=== PATIENT | female | born 1955 | race Caucasian/White ===

== ENCOUNTER 2017-06-29 10:35 | Emergency (ER) | payer BC ==
--- OUTSIDE RECORDS SUMMARY | 2017-06-29 10:37 | XMS REPORT | Clinical Summary ---
:1955 Author Organization [facility] Address [address] [place] [id number] Care Team Providers Name Role Phone Suleman Casiano MD Primary Care Provider Unavailable Allergies Active Allergy Reactions Severity Noted Date Comments Penicillins 12/31/2016 Sulfa (Sulfonamide Antibiotics) 12/31/2016 Current Medications Prescription Sig. Disp. Refills Start Date End Date Status SUBOXONE 8-[address] 1 strip 0 12/30/2016 Active UNDER THE TONGUE THREE TIMES DAILY carisoprodol (SOMA) 350 MG Take 350 mg by Active tablet mouth 4 (four) times a day as needed for muscle spasms. prochlorperazine Take 10 mg by Active (COMPAZINE) 10 MG tablet mouth every 6 (six) hours as needed for nausea or vomiting. Active Problems Problem Noted Date Strain of back 01/03/2017 Compression fracture of L1 lumbar vertebra 12/31/2016 Encounters Date Type Specialty Care Team Description 01/26/2017 Procedure Pass Radiology 01/26/2017 Transcribe Orders Radiology Gomez Watts History of pelvic W, fracture (Primary Dx) 01/03/2017 Office Visit Orthopedic Surgery Eliazar Myers Back strainJhon III, MD subsequent encounter (Primary Dx) 12/31/2016 Hospital Encounter Radiology Eliazar Myers III, MD 12/31/2016 Office Visit Orthopedic Eliazar Choi Low back pain with bilateral sciatica, unspecified back pain laterality, unspecified chronicity (Primary Dx); Jhon HUITRON MD Compression fracture of L1 lumbar vertebra, closed, initial encounter 12/31/2016 Procedure Pass Radiology 12/31/2016 Ancillary Orders Eliazar Mckenna III, MD after 06/28/2016 Family History Medical History Relation Name Comments Cancer Mother Norma Nevill Diabetes Mother Norma Nevill Relation Name Status Comments Mother Norma Ortiz Social History Tobacco Use Types Packs/Day Years Used Date Current Every Day Smoker Cigarettes 1 45 Started: 04/04/1976 Comments: Still smoke Alcohol Use Drinks/Week oz/Week Comments No Sex Assigned at Date Recorded Not on file Last Filed Vital Signs Vital Sign Reading Time Taken Blood Pressure 130/82 01/03/2017 3:14 PM CDT Pulse - - Temperature - - Respiratory Rate - - Oxygen Saturation - - Inhaled Oxygen Concentration - - Weight 70.8 kg (156 lb) 02/07/2017 1:52 PM [employer] Height 167.6 cm (5' 6") 02/07/2017 1:52 PM [employer] Body Mass Index 25.18 02/07/2017 1:52 PM [employer] Plan of Treatment Health Maintenance Due Date Last Done Comments PAP SMEAR 1978 COLONOSCOPY 12/03/2007 MAMMOGRAM 12/03/2007 INFLUENZA VACCINE 11/02/2016 Results MRI Pelvis W Wo Contrast (02/07/2017 2:40 PM) Specimen Performing Laboratory [facility] [address] [place] [address] Narrative EXAMINATION:MRI PELVIS W WO CONTRAST CLINICAL HISTORY:Z87.81 Personal history of (healed) traumatic fracture, PELVIC FRACTURE TECHNIQUE: Multiplanar multisequence MR images of the pelvis were obtained pre - and post intravenous administration of Gadolinium. COMPARISON:None. FINDINGS: 1.Densely sclerotic 2.4 x 1.7 cm nonenhancing area involving the right iliac bone adjacent to the sacroiliac joint. The findings are most likely related to osteoarthritis. To a lesser extent there is a sclerotic area adjacent to the left SI joint measuring 9 x 8 mm. 2.There is no abnormal increased T2 signal intensity involving the sacrum or visualized portions of the iliac bones to suggest an acute fracture. There is significant artifact secondary to hardware from bilateral hip prosthesis. 3.Large and small bowel loops in the pelvis are of normal caliber. The bladder is relatively empty. Uterus is surgically absent. 4.There is no evidence to suggest a pelvic mass. IMPRESSION: 1.No evidence to suggest an acute pelvic fracture. [id number] Procedure Note Interface, Radiology Results Incoming - 02/07/2017 4:23 PM [employer] EXAMINATION: MRI PELVIS W WO CONTRAST CLINICAL HISTORY: Z87.81 Personal history of (healed) traumatic fracture, PELVIC FRACTURE TECHNIQUE: Multiplanar multisequence MR images of the pelvis were obtained pre - and post intravenous administration of Gadolinium. COMPARISON: None. FINDINGS: 1. Densely sclerotic 2.4 x 1.7 cm nonenhancing area involving the right iliac bone adjacent to the sacroiliac joint. The findings are most likely related to osteoarthritis. To a lesser extent there is a sclerotic area adjacent to the left SI joint measuring 9 x 8 mm. 2. There is no abnormal increased T2 signal intensity involving the sacrum or visualized portions of the iliac bones to suggest an acute fracture. There is significant artifact secondary to hardware from bilateral hip prosthesis. 3. Large and small bowel loops in the pelvis are of normal caliber. The bladder is relatively empty. Uterus is surgically absent. 4. There is no evidence to suggest a pelvic mass. IMPRESSION: 1. No evidence to suggest an acute pelvic fracture. [id number] Estimated GFR (02/07/2017 1:44 PM) Component Value Ref Range GFR Non Af Amer >90 mL/min/1.73 m2 GFR Af Amer >90 mL/min/1.73 m2 Comment: Chronic kidney disease: <60 mL/min/1.73m2 Kidney failure: <15 mL/min/1.73m2 The estimated GFR is calculated from the IDMS-traceable Modification of Diet in Renal Disease Equation. The accuracy of the calculation is poor when the creatinine is normal. Calculated values >90 mL/min/1.73m2 are not reported. This equation has not been validated in children (<18 years), women, the elderly (>70 years), or ethnic groups other than Caucasians and Americans. Specimen Performing Laboratory Blood [facility] DEPARTMENT OF PATHOLOGY AND GENOMIC MEDICINE [address] [place], [place] [id number] POC creatinine (02/07/2017 1:44 PM) Component Value Ref Range POC creatinine 0.3 (L)Comment: Testing performed on the ISTAT 0.5 - 0.9 mg/dl instrument by RN [id number]. Specimen Performing Laboratory Blood [facility] DEPARTMENT OF PATHOLOGY AND GENOMIC MEDICINE [address] [place] [id number] MRI Lumbar Spine Wo Contrast (12/31/2016 4:51 PM) Specimen Performing Laboratory [facility] [address] [place] [id number] Narrative EXAMINATION:MRI LUMBAR SPINE WO CONTRAST CLINICAL HISTORY:S32.010A Wedge compression fracture of first lumbar vertebrainitial encounter for closed fracture, low back pain COMPARISON:May 14, 2012 FINDINGS: Lowermost functional disc space is assumed to be L5-S1. There is chronic severe compression fracture of L1 vertebral body with some retrolisthesis. There is a subacute superior endplate Schmorl's node at T12. No suspicious focal bone marrow lesions. Visualized spinal cord is normal in appearance. L1-2: Mild retrolisthesis of L1. No significant canal or foraminal narrowing. L2-3: No canal or foraminal narrowing. L3-4: No canal or foraminal narrowing. Mild bilateral facet arthropathy. L4-5: Bilateral facet arthropathy. No canal or foraminal narrowing. L5-S1: No canal or foraminal narrowing. Bilateral facet arthropathy. IMPRESSION: Chronic L1 vertebral body compression fracture. Subacute superior endplate Schmorl's node at T12. No significant canal or foraminal narrowing in the lumbar spine. [facility]-[id number] Procedure Note Interface, Radiology Results Incoming - 12/31/2016 4:58 PM CDT EXAMINATION: MRI LUMBAR SPINE WO CONTRAST CLINICAL HISTORY: S32.010A Wedge compression fracture of first lumbar vertebra initial encounter for closed fracture, low back pain COMPARISON: May 14, 2012 FINDINGS: Lowermost functional disc space is assumed to be L5-S1. There is chronic severe compression fracture of L1 vertebral body with some retrolisthesis. There is a subacute superior endplate Schmorl's node at T12. No suspicious focal bone marrow lesions. Visualized spinal cord is normal in appearance. L1-2: Mild retrolisthesis of L1. No significant canal or foraminal narrowing. L2-3: No canal or foraminal narrowing. L3-4: No canal or foraminal narrowing. Mild bilateral facet arthropathy. L4-5: Bilateral facet arthropathy. No canal or foraminal narrowing. L5-S1: No canal or foraminal narrowing. Bilateral facet arthropathy. IMPRESSION: Chronic L1 vertebral body compression fracture. Subacute superior endplate Schmorl's node at T12. No significant canal or foraminal narrowing in the lumbar spine. [facility]-[id number] XR Lumbar Spine Complete 4+ Vw (12/31/2016 2:06 PM) Specimen Performing Laboratory [facility] [address] [place] [address] Narrative 5. View lumbar spine with flexion-extension: Patient is a total hip replacement. General appearance is one of osteopenia. There is advanced degenerative changes of the entire lumbar spine including facet joints, mostly the 2 lower segments. There is a compression fracture with vertebral plana of L1. CT Spine External Study (12/17/2016 1:44 PM) Specimen Performing Laboratory [facility] [address] [place] [address] Narrative This exam was not acquired at a Religious facility and has not been interpreted by a Religious Provider.The exam was imported into our imaging system for comparisons purposes. after 06/28/2016 Insurance Payer Benefit Plan / Group Subscriber ID Type Phone Address BCBS BCBS CHOICE PPO/FEDERAL EMPL PPO xxxxxxxxxxxx PPO Home: [id number] [phone] [address]
[2017-06-29] MEDS ORDERED: KETOROLAC 30 MG/ML INJ ONE (11:18)
--- NOTE | 2017-06-29 11:48 | RAD REPORT ---
EXAM DESCRIPTION: RAD - Wrist Left 3 View - 06/29/2017 11:39 am CLINICAL HISTORY: Left wrist pain status post injury FINDINGS: No acute fracture or dislocation is seen. The bones are osteoporotic. Sideplate and screws affix old radial and ulnar fractures If the patient continues to have symptoms to suggest an occult fracture then a followup plain film se abhilash in 7 days would be recommended
--- NOTE | 2017-06-29 11:49 | RAD REPORT ---
EXAM DESCRIPTION: RAD - Hip Left 2 View - 06/29/2017 11:39 am CLINICAL HISTORY: Fall, hip pain COMPARISON: 04/23/2016 FINDINGS: Left total hip arthroplasty is noted. No evidence of hardware loosening or infection. An a cute fracture is not seen. Ill-defined sclerosis involving the right SI joint is a chronic finding. IMPRESSION: No acute abnormality discerned.
--- NOTE | 2017-06-29 12:49 | ER ---
Nurse's Notes [facility] Name: Dorita Chirinos Age: 61 yrs Sex: Female : 1955 Arrival Date: 06/29/2017 Time: 10:40 Bed 24 Private MD: Diagnosis: Contusion of left wrist;Contusion of left hip Presentation: 06/29 10:41 Presenting complaint: EMS states: walking into [facility] when patient set her purse down and ss forgot to pick it back up, then tripped. Pt c/o L hip and wrist pain. Pt's speech is slurred, appears drowsy and is wearing sunglasses. Pupils equal, pinpoint. Denies taking any medications today. Denies hitting head. Transition of care: patient was not received from another setting of care. Onset of symptoms was June 29, 2017. Care prior to arrival: None. 10:41 Method Of Arrival: EMS: [facility] ss 10:41 Acuity: AGAPITO 3 ss Historical: - Allergies: 10:44 Morphine; ss 10:44 PENICILLINS; ss 10:44 Sulfa (Sulfonamide Antibiotics); ss - Home Meds: 10:44 [place] 10-325 mg Oral tab 1 tab three times a day [Active]; ss - PMHx: 10:44 Anxiety; GERD; Vascular Necrosis; ovarian cancer; Chronic pain; ss - PSHx: 10:44 bilateral hip replacements; R wrist repair; ss - Immunization history:: Adult Immunizations up to date. - Social history:: Smoking status: Patient uses tobacco products, smokes one-half pack cigarettes per day. Screenin:50 Abuse screen: Denies threats or abuse. Denies injuries from another. Nutritional ss screening: No deficits noted. Tuberculosis screening: Never had TB. Fall Risk Fall in past 12 months (25 points). No secondary diagnosis (0 pts). IV access (20 points). Ambulatory Aid- None/Bed Rest/Nurse Assist (0 pts). Gait- Normal/Bed Rest/Wheelchair (0 pts) Mental Status- Oriented to own ability (0 pts). Assessment: 10:41 General: Appears uncomfortable, Behavior is cooperative, drowsy, Denies fever, feeling ss ill, fatigue, chills. Pain: Complains of pain in L hip, L wrist Pain currently is 10 out of 10 on a pain scale. Quality of pain is described as tender, Pain began 30 min ago. Is continuous, Aggravated by increased activity, repositioning. Neuro: Level of Consciousness is awake, obeys commands, drowsy. Moves all extremities. Full function Speech is slurred, Facial symmetry appears normal, Pupils are PERRLA, Denies blurred vision numbness headache. Cardiovascular: Capillary refill < 3 seconds is brisk in bilateral fingers. GI: Patient currently denies diarrhea, nausea, vomiting. :. EENT: Nares are clear Oral mucosa is moist. Throat is clear Denies blurred vision. Derm: Skin is intact, is healthy with good turgor, Skin is dry, Skin is pink, warm \T\ dry. normal. Musculoskeletal: Circulation, motion, and sensation intact. Capillary refill < 3 seconds, is brisk, in bilateral fingers. Range of motion: intact in all extremities, Swelling absent. 10:48 Reassessment: Pt is requesting pain medication, warm blanket given for comfort. HANNA Hart at bedside. 12:52 Reassessment: Patient appears in no apparent distress at this time. Patient and/or ss family updated on plan of care and expected duration. Pain level reassessed. Patient is alert, oriented x 3, equal unlabored respirations, skin warm/dry/pink. Patient states feeling better. Patient states symptoms have improved. Neuro: Level of Consciousness is awake, alert, Speech is normal. Respiratory: Respiratory effort is even, unlabored. Vital Signs: 10:44 BP 99 / 62; Pulse 96; Resp 15; Temp 97.6(O); Pulse Ox 100% on R/A; Weight 69.4 kg; Height 5 ft. 3 in. (160.02 cm); Pain 10/10; 12:28 BP 110 / 68 Supine; Pulse 80; Resp 16; Pulse Ox 98% on R/A; dh3 12:30 BP 104 / 70 Sitting; Pulse 85; Resp 17; Pulse Ox 100% ; dh3 12:32 BP 106 / 73 Standing; Pulse 91; Resp 19; Pulse Ox 100% ; dh3 10:44 Body Mass Index 27.10 (69.40 kg, 160.02 cm) ED Course: 10:40 Patient arrived in ED. 10:43 Triage completed. 10:44 [place] PA is PHCP. jr8 10:44 Elliott Galan MD is Attending Physician. jr8 10:44 Arm band placed on right wrist. ss 10:50 Patient has correct armband on for positive identification. Bed in low position. Call ss light in reach. 10:55 Ani Mann, RN is Primary Nurse. ss 11:38 X-ray completed. Portable x-ray completed in exam room. Patient tolerated procedure jb2 well. 11:40 XRAY Hip LEFT 2 view In Process Unspecified. EDMS 11:40 XRAY Wrist LEFT 3 view In Process Unspecified. EDMS 12:53 No provider procedures requiring assistance completed. Patient did not have IV access ss during this emergency room visit. Administered Medications: 11:40 Drug: TORadol 60 mg Route: IM; Site: left gluteus; ss 12:54 Follow up: Response: No adverse reaction; Pain is decreased ss Outcome: 12:48 Discharge ordered by . jr8 12:53 Discharged to home ambulatory. ss 12:53 Condition: good 12:53 Discharge instructions given to patient, Instructed on discharge instructions, follow up and referral plans. Demonstrated understanding of instructions, follow-up care. 12:55 Patient left the ED. ss Signatures: Dispatcher [employer] EDOH Juan Ramon Curran jb2 Ani Mann, RASHMI RN [place] PA PA jr8 Yanna Hobson 3
--- NOTE | 2017-06-29 12:49 | EDPHYS ---
Physician Documentation [facility] Name: Dorita Chirinos Age: 61 yrs Sex: Female : 1955 Arrival Date: 06/29/2017 Time: 10:40 Bed 24 Private MD: ED Physician Elliott Galan HPI: 06/29 11:10 This 61 yrs old Female presents to ER via EMS with complaints of Hip Pain, jr8 Wrist Pain. 11:10 The patient or guardian reports pain. that occurred outdoors, sustained from a fall, jr8 There is no obvious deformity. The complaints affect the left hip. Onset: The symptoms/episode began/occurred acutely, today. Modifying factors: The symptoms are alleviated by nothing, the symptoms are aggravated by any movement. Associated signs and symptoms: Loss of consciousness: the patient experienced no loss of consciousness. Severity of symptoms: At their worst the symptoms were moderate, in the emergency department the symptoms are unchanged. The patient has not experienced similar symptoms in the past. The patient has not recently seen a physician. Patient stated that she was getting out of her vehicle. Tripped and landed on left wrist and hip. Pain to hip and wrist since incident . Historical: - Allergies: 10:44 Morphine; ss 10:44 PENICILLINS; ss 10:44 Sulfa (Sulfonamide Antibiotics); ss - Home Meds: 10:44 [place] 10-325 mg Oral tab 1 tab three times a day [Active]; ss - PMHx: 10:44 Anxiety; GERD; Vascular Necrosis; ovarian cancer; Chronic pain; ss - PSHx: 10:44 bilateral hip replacements; R wrist repair; ss - Immunization history:: Adult Immunizations up to date. - Social history:: Smoking status: Patient uses tobacco products, smokes one-half pack cigarettes per day. ROS: 11:10 Eyes: Negative for injury, pain, redness, and discharge, ENT: Negative for injury, jr8 pain, and discharge, Neck: Negative for injury, pain, and swelling, Cardiovascular: Negative for chest pain, palpitations, and edema, Respiratory: Negative for shortness of breath, cough, wheezing, and pleuritic chest pain, Abdomen/GI: Negative for abdominal pain, nausea, vomiting, diarrhea, and constipation, Back: Negative for injury and pain, Skin: Negative for injury, rash, and discoloration, Neuro: Negative for headache, weakness, numbness, tingling, and seizure. 11:10 MS/extremity: Positive for pain, tenderness, of the left hip. Left wrist . Exam: 11:10 Head/Face: Normocephalic, atraumatic. Eyes: Pupils equal round and reactive to light, jr8 extra-ocular motions intact. Lids and lashes normal. Conjunctiva and sclera are non-icteric and not injected. Cornea within normal limits. Periorbital areas with no swelling, redness, or edema. ENT: Nares patent. No nasal discharge, no septal abnormalities noted. Tympanic membranes are normal and external auditory canals are clear. Oropharynx with no redness, swelling, or masses, exudates, or evidence of obstruction, uvula midline. Mucous membranes moist. Neck: Trachea midline, no thyromegaly or masses palpated, and no cervical lymphadenopathy. Supple, full range of motion without nuchal rigidity, or vertebral point tenderness. No Meningismus. Cardiovascular: Regular rate and rhythm with a normal S1 and S2. No gallops, murmurs, or rubs. Normal PMI, no JVD. No pulse deficits. Respiratory: Lungs have equal breath sounds bilaterally, clear to auscultation and percussion. No rales, rhonchi or wheezes noted. No increased work of breathing, no retractions or nasal flaring. Abdomen/GI: Soft, non-tender, with normal bowel sounds. No distension or tympany. No guarding or rebound. No evidence of tenderness throughout. Back: No spinal tenderness. No costovertebral tenderness. Full range of motion. Skin: Warm, dry with normal turgor. Normal color with no rashes, no lesions, and no evidence of cellulitis. Neuro: Awake and alert, GCS 15, oriented to person, place, time, and situation. Cranial nerves II-XII grossly intact. Motor strength 5/5 in all extremities. Sensory grossly intact. Cerebellar exam normal. Normal gait. 11:10 Musculoskeletal/extremity: Extremities: grossly normal except: noted in the left hip: pain, tenderness, noted in the left wrist: pain, tenderness, ROM: intact in all extremities, Circulation is intact in all extremities. Vital Signs: 10:44 BP 99 / 62; Pulse 96; Resp 15; Temp 97.6(O); Pulse Ox 100% on R/A; Weight 69.4 kg; ss Height 5 ft. 3 in. (160.02 cm); Pain 10/10; 12:28 BP 110 / 68 Supine; Pulse 80; Resp 16; Pulse Ox 98% on R/A; dh3 12:30 BP 104 / 70 Sitting; Pulse 85; Resp 17; Pulse Ox 100% ; dh3 12:32 BP 106 / 73 Standing; Pulse 91; Resp 19; Pulse Ox 100% ; dh3 10:44 Body Mass Index 27.10 (69.40 kg, 160.02 cm) MDM: 10:45 Patient medically screened. jr8 12:46 Data reviewed: vital signs, nurses notes, radiologic studies, plain films, and as a jr8 result, I will discharge patient. Data interpreted: Pulse oximetry: on room air is 100 %. Interpretation: normal. Counseling: I had a detailed discussion with the patient and/or guardian regarding: the historical points, exam findings, and any diagnostic results supporting the discharge/admit diagnosis, radiology results, the need for outpatient follow up, a family practitioner, to return to the emergency department if symptoms worsen or persist or if there are any questions or concerns that arise at home. 06/29 10:53 Order name: XRAY Hip LEFT 2 view; Complete Time: 11:50 jr8 06/29 10:53 Order name: XRAY Wrist LEFT 3 view; Complete Time: 11:50 jr8 06/29 11:50 Order name: Orthostatics; Complete Time: 12:36 jr8 Administered Medications: 11:40 Drug: TORadol 60 mg Route: IM; Site: left gluteus; ss 12:54 Follow up: Response: No adverse reaction; Pain is decreased ss Disposition: 15:10 Co-signature as Attending Physician, Elliott Galan MD I agree with the assessment and shi plan of care. Disposition: 06/29/17 12:48 Discharged to Home. Impression: Contusion of left wrist, Contusion of left hip. - Condition is Stable. - Discharge Instructions: Contusion, Wrist Pain, Hip Pain. - Medication Reconciliation Form, Thank You Letter, Antibiotic Education, Prescription Opioid Use form. - Follow up: Private Physician; When: 2 - 3 days; Reason: Recheck today's complaints, Continuance of care, Re-evaluation by your physician. - Problem is new. - Symptoms have improved. Signatures: Dispatcher [employer] Elliott Russell MD MD cha Smirch, Shelby, RN RN Angus Forman PA PA jr8
[2017-06-29 13:00] VITALS: TEMP 97.6
[2017-06-29 13:02] VITALS: O2SAT 100
[2017-06-29 13:03] VITALS: BP 106/73
== END 2017-06-29 12:55 | disposition home or self-care (01) ==
LOC: ER 10:35
DX: S70.02XA Contusion of left hip, initial encounter (principal); S60.212A Contusion of left wrist, initial encounter; W19.XXXA Unspecified fall, initial encounter; Y93.9 Activity, unspecified; Y92.89 Other specified places as the place of occurrence of the external cause; Z85.43 Personal history of malignant neoplasm of ovary; Z88.5 Allergy status to narcotic agent; Z88.0 Allergy status to penicillin; Z88.2 Allergy status to sulfonamides; F41.9 Anxiety disorder, unspecified; F17.210 Nicotine dependence, cigarettes, uncomplicated
CPT/HCPCS: 96372; 99284

== ENCOUNTER 2017-08-24 00:59 | Observation (INO) | payer BC ==
--- OUTSIDE RECORDS SUMMARY | 2017-08-24 01:02 | XMS REPORT | Clinical Summary ---
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 [id number] Procedure Note Interface, Radiology Results Incoming - 02/07/2017 4:23 PM BREAD WRAPPING MACHINE FEEDER EXAMINATION: MRI PELVIS W WO CONTRAST CLINICAL [...] evidence to suggest an acute pelvic fracture. [id number] Estimated GFR (02/07/2017 1:44 PM) Component Value [...] Caucasians and Americans. Specimen Performing Laboratory Blood [facility] DEPARTMENT OF PATHOLOGY AND GENOMIC MEDICINE [address] [place] [id number] POC creatinine (02/07/2017 1:44 PM) Component Value Ref Range POC creatinine 0.3 (L)Comment: Testing performed on the ISTAT 0.5 - 0.9 mg/dl instrument by RN [id number]. Specimen Performing Laboratory Blood [facility] DEPARTMENT OF PATHOLOGY AND GENOMIC MEDICINE [address] [place] [id number] MRI Lumbar Spine Wo Contrast (12/31/2016 4:51 PM) Specimen Performing Laboratory [facility] [address] [place] [address] Narrative EXAMINATION:MRI LUMBAR SPINE WO CONTRAST CLINICAL [...] or foraminal narrowing in the lumbar spine. [id number] Procedure Note Interface, Radiology Results 12/31/2016 4:58 PM CDT EXAMINATION: MRI LUMBAR [...] or foraminal narrowing in the lumbar spine. [id number] XR Lumbar Spine Complete 4+ Vw (12/31/2016 2:06 PM) Specimen Performing Laboratory [facility] [address] [place] [address] Narrative 5. View lumbar spine with flexion-extension: Patient is a total hip replacement. General appearance is one of osteopenia. There is advanced degenerative changes of the entire lumbar spine including facet joints, mostly the 2 lower segments. There is a compression fracture with vertebral plana of L1. CT Spine External Study (12/17/2016 1:44 PM) Specimen Performing Laboratory [facility] [address] [place] [address] Narrative This exam was not acquired at a [facility] facility and has not been interpreted by a [facility] Provider.The exam was imported into our imaging system for comparisons purposes. after 08/23/2016 Insurance Payer Benefit Plan / Group Subscriber ID Type Phone Address BCBS BCBS CHOICE PPO/FEDERAL EMPL PPO xxxxxxxxxxxx PPO Home: [id number] [phone] [address]
[2017-08-24 02:54] LABS: Absolute Lymphocytes (CBC) 1.5 K/uL (0.7-4.9); Absolute Monocytes 0.5 K/uL (0.1-1.3); Absolute Neutrophil 2.9 K/uL (1.8-8.0); Eosinophils % 0.4 % (0-4.4); Lymphocytes % 29.4 % (15.3-44.8); MCV 76.8 fL (80-100); MPV 7.4 fL (7.6-11.3); Monocytes % 10.8 % (3.3-12.3); RBC Red Blood Cell Count 2.15 M/uL (3.86-4.86)
[2017-08-24 02:59] LABS: Hematocrit 16.5 % (36.0-45.0)
[2017-08-24 03:03] LABS: Bicarbonate 30 mEq/L (21-31); Glucose Level 107 mg/dL (65-120); Sodium Level 132 mEq/L (135-145)
[2017-08-24 03:04] LABS: BUN Blood Urea Nitrogen 9 mg/dL (6-20)
[2017-08-24] MEDS ORDERED: FUROSEMIDE 20 MG/ 2ML VIAL ONE (03:16)
--- NOTE | 2017-08-24 03:42 | ER ---
Nurse's Notes [facility] Name: Dorita Chirinos Age: 61 yrs Sex: Female : 1955 Arrival Date: 08/24/2017 Time: 01:00 Bed 15 Private MD: Kalani Casiano H Diagnosis: Iron deficiency anemia, unspecified Presentation: 08/24 01:15 Presenting complaint: Patient states: Pt. c/o general weakness x 1 month. Hx of low rk2 iron... pt. had lab work completed to check iron level; however, blood clotted off and they were unable to obtain results. PCP advised to go to ED for evaluation. Pt. c/o bilateral leg pain/back pain; which is chronic pain. Transition of care: patient was not received from another setting of care. Onset of symptoms was August 24, 2017. Risk Assessment: Do you want to hurt yourself or someone else? Patient reports no desire to harm self or others. Initial Sepsis Screen: Does the patient meet any 2 criteria? HR > 90 bpm. No. Patient's initial sepsis screen is negative. Does the patient have a suspected source of infection? No. Patient's initial sepsis screen is negative. Care prior to arrival: None. 01:15 Method Of Arrival: Wheelchair rk2 01:15 Acuity: AGAPITO 3 rk2 Historical: - Allergies: 01:19 Sulfa (Sulfonamide Antibiotics); rk2 01:19 PENICILLINS; rk2 05:02 Morphine; bp - Home Meds: 05:02 anxiety medication unknown three times a day for . [Active]; [place] 10-325 mg Oral tab 1 bp tab three times a day [Active]; Soma Oral [Active]; - PMHx: 01:19 Anxiety; Chronic pain; GERD; ovarian cancer; Vascular Necrosis; L1 Issues; rk2 05:02 Hypertension; bp - Immunization history:: Pneumococcal vaccine is not up to date, Flu vaccine is not up to date. - Social history:: Smoking status: Patient uses tobacco products, smokes one-half pack cigarettes per day. - Ebola Screening: : Patient negative for fever greater than or equal to 101.5 degrees Fahrenheit, and additional compatible Ebola Virus Disease symptoms. Screenin:14 Abuse screen: Denies threats or abuse. Denies injuries from another. Nutritional bp screening: No deficits noted. Tuberculosis screening: No symptoms or risk factors identified. Fall Risk None identified. Assessment: 01:15 General: Appears in no apparent distress. comfortable, slender, Behavior is bp cooperative, appropriate for age, listless, RECD 61YO WF VIA W/C FOR GEN WKN INCREASING x1 MONTH, H/O MX CHRONIC PAIN D/O. PT LISTLESS AND PALE. Pain: Complains of pain in right leg and left leg. 02:00 Reassessment: PT SLEEPING/LETHARGIC, VS STABLE ON MONITOR. NO ACUTE FINDINGS AT THIS bp TIME. 02:37 Reassessment: PT SLEEPING UNLESS AROUSED BY TOUCH. SPEECH SLOW AND SLURRED, PUPILS bp CONSTRICTED. PHLEBOTOMY AT B/S FOR LAB DRAW. 03:00 Reassessment: CRITICAL LOW H/H FROM LAB, PROVIDER NOTIFIED. bp 03:15 Reassessment: PT CONSENT FOR BLOOD SIGNED/WITNESSED, TRANSFUSION PENDING. bp 04:15 Reassessment: 1ST UNIT INFUSING. VS STABLE ON MONITOR, ADMIT IN PROCESS. bp 05:31 Reassessment: REPORT TO ANYA CARABALLO, RM 410. PT TRANSPORTED WITH BLOOD INFUSING. bp Vital Signs: 01:19 BP 111 / 77; Pulse 105; Resp 17; Temp 99.8; Pulse Ox 96% on R/A; rk2 02:00 BP 114 / 72; Pulse 94; Resp 9; Pulse Ox 100% ; bp 02:30 BP 105 / 77; Pulse 89; Resp 17; Pulse Ox 100% ; bp 03:30 BP 108 / 68; Pulse 95; Resp 16; Pulse Ox 96% ; bp 04:30 BP 121 / 75; Pulse 92; Resp 14; Temp 97.9; Pulse Ox 100% ; bp 05:20 BP 122 / 77; Pulse 96; Resp 16; Temp 97.9; Pulse Ox 100% ; bp ED Course: 01:00 Patient arrived in ED. es 01:02 Kalani Casiano DO is Private Physician. es 01:05 Mu Monahan, RN is Primary Nurse. bp 01:14 Patient has correct armband on for positive identification. Bed in low position. Call bp light in reach. Side rails up X2. Adult w/ patient. 01:18 Triage completed. rk2 01:30 Arm band placed on. bp 02:23 Chanel Nowak FNP-C [facility]. snw 02:23 Elliott Galan MD is Attending Physician. snw 02:59 Notified Nurse Practitioner and/or Physician Audio Visual Design Engineer of a critical lab result(s), Hgb lp1 5.2, Hct 16.5. 03:26 Inserted saline lock: 20 gauge in right upper arm, using aseptic technique. Blood bp collected. 03:41 Alana Lopez MD is Hospitalizing Provider. snw 05:01 No provider procedures requiring assistance completed. Pierce cath inserted, using bp sterile technique, 16 Fr., by renal dialysis technician, balloon inflated, to gravity drainage. Patient admitted, IV remains in place. Administered Medications: 03:15 Drug: Lasix 20 mg Route: IVP; Site: right upper arm; bp 03:45 Follow up: Response: No adverse reaction bp Output: 05:50 Urine: 1000ml (Pierce); Total: 1000ml. bp Outcome: 03:41 Decision to Hospitalize by Provider. snw 05:32 Admitted to Tele accompanied by nurse, accompanied by tech, via stretcher, with chart, bp Report called to ANYA CARABALLO 05:32 Condition: stable 05:32 Instructed on the need for admit. 06:16 Patient left the ED. bp Signatures: Chanel Nowak FNP-C PROJECT DEVELOPER-Csnw Emilie Romero Laura, RN RN lp1 Mu Monahan RN RN bp Luisana Gleason RN RN rk2
--- NOTE | 2017-08-24 03:42 | EDPHYS ---
Physician Documentation [facility] Name: Dorita Chirinos Age: 61 yrs Sex: Female : 1955 Arrival Date: 08/24/2017 Time: 01:00 Bed 15 Private MD: Kalani Casiano H ED Physician Elliott Galan HPI: 08/24 03:51 This 61 yrs old Female presents to ER via Wheelchair with complaints of snw General Weakness. 03:51 Increasing weakness over past month. Fe infusion in . Onset: The symptoms/episode snw began/occurred gradually, and became persistent. Severity of symptoms: At their worst the symptoms were severe in the emergency department the symptoms are unchanged. The patient has experienced similar episodes in the past. The patient has been recently seen by a physician: the patient's primary care provider, Dr. Casiano with similar presenting complaints. pt heavily medicated for chronic pain. Historical: - Allergies: 01:19 Sulfa (Sulfonamide Antibiotics); rk2 01:19 PENICILLINS; rk2 05:02 Morphine; bp - Home Meds: 05:02 anxiety medication unknown three times a day for . [Active]; [place] 10-325 mg Oral tab 1 bp tab three times a day [Active]; Soma Oral [Active]; - PMHx: 01:19 Anxiety; Chronic pain; GERD; ovarian cancer; Vascular Necrosis; L1 Issues; rk2 05:02 Hypertension; bp - Immunization history:: Pneumococcal vaccine is not up to date, Flu vaccine is not up to date. - Social history:: Smoking status: Patient uses tobacco products, smokes one-half pack cigarettes per day. - Ebola Screening: : Patient negative for fever greater than or equal to 101.5 degrees Fahrenheit, and additional compatible Ebola Virus Disease symptoms. ROS: 03:46 Eyes: Negative for injury, pain, redness, and discharge, ENT: Negative for injury, snw pain, and discharge, Neck: Negative for injury, pain, and swelling, Respiratory: Negative for shortness of breath, cough, wheezing, and pleuritic chest pain, Back: Negative for injury and pain, : Negative for injury, bleeding, discharge, and swelling. 03:46 Cardiovascular: Negative for chest pain, palpitations, and edema, Abdomen/GI: Negative for abdominal pain, nausea, vomiting, diarrhea, and constipation, Skin: Negative for injury, rash, and discoloration. 03:46 Constitutional: Positive for increasing weakness over one month, hx of low iron. 03:46 Cardiovascular: Positive for 03:46 MS/extremity: Positive for pain, swelling, chronic pain in back, wrist, and legs. 03:46 Neuro: Positive for weakness. Exam: 03:41 Eyes: Pupils equal round and reactive to light, extra-ocular motions intact. Lids and snw lashes normal. Conjunctiva and sclera are non-icteric and not injected. Cornea within normal limits. Periorbital areas with no swelling, redness, or edema. ENT: Nares patent. No nasal discharge, no septal abnormalities noted. Tympanic membranes are normal and external auditory canals are clear. Oropharynx with no redness, swelling, or masses, exudates, or evidence of obstruction, uvula midline. Mucous membranes moist. Neck: Trachea midline, no thyromegaly or masses palpated, and no cervical lymphadenopathy. Supple, full range of motion without nuchal rigidity, or vertebral point tenderness. No Meningismus. Chest/axilla: Normal chest wall appearance and motion. Nontender with no deformity. No lesions are appreciated. 03:41 Respiratory: Lungs have equal breath sounds bilaterally, clear to auscultation and percussion. No rales, rhonchi or wheezes noted. No increased work of breathing, no retractions or nasal flaring. Abdomen/GI: Soft, non-tender, with normal bowel sounds. No distension or tympany. No guarding or rebound. No evidence of tenderness throughout. Back: No spinal tenderness. No costovertebral tenderness. Full range of motion. MS/ Extremity: Pulses equal, no cyanosis. Neurovascular intact. Full, normal range of motion. 03:41 Constitutional: The patient appears listless, unkempt. 03:41 Head/face: Noted is pallor. 03:41 Cardiovascular: Rate: tachycardic, Rhythm: regular, Pulses: no pulse deficits are appreciated, Heart sounds: murmur, Edema: 3+ edema to level of left midcalf, left ankle, left foot, left toes, right midcalf, right ankle, right foot and right toes, JVD: is not appreciated. 03:41 Skin: Appearance: Color: pale. 03:41 Neuro: Orientation: is normal, Mentation: is normal, Motor: generalized weakness, chronic pain. Vital Signs: 01:19 BP 111 / 77; Pulse 105; Resp 17; Temp 99.8; Pulse Ox 96% on R/A; rk2 02:00 BP 114 / 72; Pulse 94; Resp 9; Pulse Ox 100% ; bp 02:30 BP 105 / 77; Pulse 89; Resp 17; Pulse Ox 100% ; bp 03:30 BP 108 / 68; Pulse 95; Resp 16; Pulse Ox 96% ; bp 04:30 BP 121 / 75; Pulse 92; Resp 14; Temp 97.9; Pulse Ox 100% ; bp 05:20 BP 122 / 77; Pulse 96; Resp 16; Temp 97.9; Pulse Ox 100% ; bp MDM: 02:25 Patient medically screened. shi 03:45 Data reviewed: vital signs, nurses notes. Data interpreted: Pulse oximetry: on room air snw is 96 %. Interpretation: normal. Counseling: I had a detailed discussion with the patient and/or guardian regarding: the historical points, exam findings, and any diagnostic results supporting the discharge/admit diagnosis, lab results, the need for further work-up and treatment in the hospital. Physician consultation: Alana Lopez MD was called at 03:30, was contacted at 03:30, regarding admission. 08/24 02:24 Order name: CBC with Diff; Complete Time: 03:06 snw 08/24 02:24 Order name: Chem 7; Complete Time: 03:06 snw 08/24 02:24 Order name: TS [facility] 08/24 03:46 Order name: Packed RBC Leukored -1 [facility] 08/24 03:07 Order name: Consent for Blood Transfusion; Complete Time: 03:25 snw 08/24 03:07 Order name: IV Saline Lock; Complete Time: 03:25 snw 08/24 03:47 Order name: CONS Pharmacy Consult [facility] 08/24 03:47 Order name: Regular EDMS Administered Medications: 03:15 Drug: Lasix 20 mg Route: IVP; Site: right upper arm; bp 03:45 Follow up: Response: No adverse reaction bp Disposition: 08/24/17 03:41 Hospitalization ordered by Alana Lopez for Observation. Preliminary diagnosis is Iron deficiency anemia, unspecified. - Bed requested for Telemetry/MedSurg (observation). - Status is Observation. bp - Condition is Stable. - Problem is an acute exacerbation. - Symptoms have worsened. UTI on Admission? No Addendum: 08/25/2017 06:58 Co-signature as Attending Physician, Elliott Galan MD I agree with the assessment and c alvarez plan of care. Signatures: Dispatcher [employer] EDAmada Dunn, RN RN Elliott Graham MD MD cha Therrien, Shelly, GROUP ROOMS COORDINATOR-C GROUP ROOMS COORDINATOR-Csnw Mu Monahan RN RN Luisana Higuera RN RN rk2 Corrections: (The following items were deleted from the chart) 08/24 04:15 03:41 Hospitalization Ordered by Alana Lopez MD for Observation. Preliminary kl diagnosis is Iron deficiency anemia, unspecified. Bed requested for Telemetry/MedSurg (observation). Status is Observation. Condition is Stable. Problem is an acute exacerbation. Symptoms have worsened. UTI on Admission? No. snw 06:16 04:15 08/24/2017 03:41 Hospitalization Ordered by Alana Lopez MD for Observation. bp Preliminary diagnosis is Iron deficiency anemia, unspecified. Bed requested for Telemetry/MedSurg (observation). Status is Observation. Condition is Stable. Problem is an acute exacerbation. Symptoms have worsened. UTI on Admission? No. jenni
[2017-08-24] MEDS ORDERED: MORPHINE 2 MG/ML SYR IV PRN (03:44)
[2017-08-24] MEDS ORDERED: ONDANSETRON 4 MG/2 ML VIAL IV PRN (03:44)
[2017-08-24] MEDS ORDERED: ACETAMINOPHEN 500 MG TAB PO PRN (03:44)
[2017-08-24] MEDS ORDERED: NA CHLORIDE 0.9% 250 ML ONE ×3 (04:20→21:22)
--- NOTE | 2017-08-24 08:12 | P.HP ---
Certification for Inpatient Patient admitted to: Observation With expected LOS: <2 Midnights Patient will require the following post-hospital care: None Practitioner: I am a practitioner with admitting privileges, knowledge of patient current condition, hospital course, and medical plan of care. Services: Services provided to patient in accordance with Admission requirements found in Title 42 Section 412.3 of the Code of Federal Regulations Patient History Date of Service: 08/24/17 Reason for admission: Iron deficiency anemia History of Present Illness: Patient is a 61-year-old female who came into the hospital with generalized weakness and shortness of breath. She states she has been fatigued. She has had a lot of stress socially. Her mother and father in law over the last year. Her has not been able to help her because he recently had knee surgery. She has been feeling weak and short of breath for quite a while. She finally went to go see her 's PCP who ordered lab testing. Her lab tests revealed she had severe anemia. She was told to go into the emergency room. Her hemoglobin in the emergency room was 5.2. She will be admitted to the hospital for 2 units of packed red blood cells. She has a history of iron deficiency anemia. She has been told in the past that she has a problem with absorption of iron, and that iron supplementation will not help. She has been advised to get intravenous iron treatments. Patient will be admitted to the hospital for blood transfusion and hopefully she will be able to be discharged later today. Patient did mention to me after we were finished talking that she has had some problems with voiding. She is not able to void. She states she has to sit in the bathroom for 45 min before she can get a little urine output. This has been going on for quite a while. We will get Urology to see her while in the hospital, but more than likely she will need to continue to see urology for outpatient follow-up to get this further addressed. Allergies Penicillins Allergy (Mild, Verified 01/06/12 18:38) Itching Sulfa (Sulfonamide Antibiotics) [Sulfa(Sulfonamide Antibiotics)] Allergy (Mild, Verified 01/06/12 18:38) Itching/Hives/Rash Home Medications: Promethazine HCl [Phenergan] 25 mg PO TIDP PRN 02/09/12 Buprenorphine HCl/Naloxone HCl [Suboxone 8 mg-2 mg Sl Film] 1 film SL TID Prochlorperazine Maleate [Compazine] 10 mg PO TID 07/09/16 Levofloxacin [Levaquin*] 500 mg PO DAILY #7 tab 07/11/16 Metronidazole [Flagyl*] 500 mg PO Q8HR #20 tablet 07/11/16 - Past Medical/Surgical History Diabetic: No -: anxiety -: uterine cancer -: avascular necrosis -: iron deficiency anemia -: gastroparesis -: chronic pain syndrome -: bilateral hip replacement -: -: bilateral wrist sx -: pelvic fx -: finger sx - Family History Father Family History: Reviewed- Non-Contributory - Social History Smoking Status: Former smoker Alcohol use: No CD- Drugs: No Caffeine use: Yes Review of Systems 10-point ROS is otherwise unremarkable Physical Examination - Vital Signs Temperature: 97.9 F Blood Pressure: 122/77 Pulse: 96 Respirations: 16 Pulse Ox (%): 100 - Physical Exam General: Alert, In no apparent distress, Oriented x3 HEENT: Atraumatic, PERRLA, Mucous membr. moist/pink, Other ( conjunctivae is pale), EOMI, Sclerae nonicteric Neck: Supple, 2+ carotid pulse no bruit, No LAD, Without JVD or thyroid abnormality Respiratory: Clear to auscultation bilaterally, Normal air movement Cardiovascular: Regular rate/rhythm, Normal S1 S2, No murmurs Gastrointestinal: Normal bowel sounds, Soft and benign, Non-distended, No tenderness Musculoskeletal: No clubbing, No swelling, No tenderness Integumentary: No rashes Neurological: Normal gait, Normal speech, Normal strength at 5/5 x4 extr, Normal tone, Sensation intact, Cranial nerves 3-12 intact, Normal affect Lymphatics: No axilla or inguinal lymphadenopathy - Studies Laboratory Data (last 24 hrs) 08/24/17 02:42: Sodium 132 L, Potassium 4.0, BUN 9, Creatinine 0.46, Glucose 107 08/24/17 02:42: WBC 4.9, Hgb 5.2 L*, Hct 16.5 L*, Plt Count 316 Assessment & Plan - Problems (Diagnosis) (1) History of avascular necrosis of capital femoral epiphysis Current Visit: Yes Status: Acute (2) Chronic pain syndrome Current Visit: Yes Status: Acute (3) History of uterine cancer Current Visit: Yes Status: Acute (4) Anemia, iron deficiency Onset Date: 08/24/17 Current Visit: Yes Status: Acute - Plan plan: 1. Transfuse 2 units of packed red blood cells 2. My plan is to recheck a H&H after 2 units are transfused 3. Urology consultation 4. Anti emetics 5. Outpatient GI follow-up for gastroparesis 6. Outpatient hematology follow-up for iron transfusions 7. Gentle hydration 8. GI and DVT prophylaxis Discharge Plan: Home Plan to discharge in: 24 Hours - Advance Directives Does patient have a Living Will: No Does patient have a Durable POA for Healthcare: No - Code Status/Comfort Care Code Status Assessed: Yes Code Status: Full Code Time Spent Managing PTS Care (In Minutes): 55
[2017-08-24] MEDS: FUROSEMIDE 20 MG/ 2ML VIAL IV SCH ×2 (08:51→15:01)
[2017-08-24] MEDS: NA CHLORIDE 0.9% 1,000 ML IV SCH ×2 (08:52→13:02)
[2017-08-24 11:08] VITALS: BMI 27.8
[2017-08-24] MEDS ORDERED: TRAMADOL HCL 50 MG TAB PO ONE ×2 (11:52→12:30)
[2017-08-24 13:49] VITALS: O2SAT 95
[2017-08-24 15:19] LABS: Urine Appearance CLEAR; Urine Bilirubin NEGATIVE (NEG); Urine Blood NEGATIVE (NEG); Urine Color YELLOW; Urine Glucose NEGATIVE (NEG); Urine Protein 1+ (NEG); Urine Specific Gravity 1.025 (1.005-1.030); Urine Urobilinogen 0.2 mg/dL (0.2-1.0)
[2017-08-24 15:25] LABS: Urine Microscopic Reflex ORDER UMIC
[2017-08-24 15:44] LABS: Urine Bacteria 20-50 /HPF (<20); Urine RBC <5 /HPF (NONE SEEN)
[2017-08-24 15:45] LABS: Urine Culture Reflex Order REFLEXED
[2017-08-24 16:14] LABS: Hematocrit 24.7 % (36.0-45.0)
[2017-08-24] MEDS ORDERED: Meropenem 1,000 MG in NA CHLORIDE 0.9% 100 ML IV ONE (18:00)
[2017-08-24] MEDS ORDERED: CEFTRIAXONE/SWI 1gm 1 GM/10 ML SYR IV SCH (18:00)
[2017-08-24] MEDS: Morphine 2 MG/2 ML SYR IV PRN (22:37)
[2017-08-25] MEDS: NA CHLORIDE 0.9% 1,000 ML IV SCH ×2 (01:37→09:42)
[2017-08-25] MEDS: Meropenem 1,000 MG in NA CHLORIDE 0.9% 100 ML IV SCH ×2 (01:38→09:18)
[2017-08-25] MEDS: FUROSEMIDE 20 MG/ 2ML VIAL IV SCH (02:18)
[2017-08-25] MEDS: Morphine 2 MG/2 ML SYR IV PRN (03:55)
[2017-08-25 04:24] LABS: Hematocrit 24.5 % (36.0-45.0)
[2017-08-25 08:06] VITALS: TEMP 98.2
[2017-08-25 08:43] VITALS: BP 103/54
[2017-08-25] MEDS ORDERED: CEFTRIAXONE 1 GM/NS 50 ML 1 GM/50 ML BAG IV SCH (09:00)
--- NOTE | 2017-08-25 14:06 | P.SSS ---
Patient History Date of Service: 08/25/17 Primary Care Provider: Dr Casiano Reason for admission: Iron deficiency anemia History of Present Illness: See HPI Allergies Penicillins Allergy (Mild, Verified 01/06/12 18:38) Itching Sulfa (Sulfonamide Antibiotics) [Sulfa(Sulfonamide Antibiotics)] Allergy (Mild, Verified 01/06/12 18:38) Itching/Hives/Rash Home Medications: Promethazine HCl [Phenergan] 25 mg PO TIDP PRN 02/09/12 Buprenorphine HCl/Naloxone HCl [Suboxone 8 mg-2 mg Sl Film] 1 film SL TID Carisoprodol [Soma*] 350 mg PO BID 08/24/17 - Past Medical/Surgical History Has patient received pneumonia vaccine in the past: No Diabetic: No -: anxiety -: uterine cancer -: avascular necrosis -: iron deficiency anemia -: gastroparesis -: chronic pain syndrome -: bilateral hip replacement -: -: bilateral wrist sx -: pelvic fx -: finger sx - Family History Father History Unknown: Yes Mother History Unknown: Yes Sister History Unknown: Yes - Social History Smoking Status: Current every day smoker Alcohol use: No CD- Drugs: No Caffeine use: Yes Place of Residence: Home Review of Systems General: As per HPI Physical Examination - Vital Signs Temperature: 98.2 F Blood Pressure: 103/54 Pulse: 93 Respirations: 18 Pulse Ox (%): 98 - Physical Exam General: Alert, In no apparent distress, Oriented x3 HEENT: Atraumatic, PERRLA, Mucous membr. moist/pink, EOMI, Sclerae nonicteric Neck: Supple, 2+ carotid pulse no bruit, No LAD, Without JVD or thyroid abnormality Respiratory: Clear to auscultation bilaterally, Normal air movement Cardiovascular: Regular rate/rhythm, Normal S1 S2 Gastrointestinal: Normal bowel sounds, No tenderness Musculoskeletal: No tenderness Integumentary: No rashes Neurological: Normal gait, Normal speech, Normal strength at 5/5 x4 extr, Normal tone, Normal affect Lymphatics: No axilla or inguinal lymphadenopathy - Diagnosis (Problem(s)) (1) Anemia, iron deficiency Onset Date: 08/24/17 Status: Acute Qualifiers: Iron deficiency anemia type: other iron deficiency Qualified Code(s): D50.8 - Other iron deficiency anemias (2) Chronic pain syndrome Status: Chronic (3) Anxiety Status: Chronic Treatment Summary: Overall during the hospital stay patient remained stable The patient was initially admitted to the hospital for hemoglobin of 5.6. Patient has a past medical history of severe iron-deficiency anemia due to in adequate dietary absorption. Patient was transfused 2 units of PRBC here in the hospital and her hemoglobin was up to 8.0. Patient was then transfused again 1. BC here in the hospital and her hemoglobin was up to 8 point of as well. Patient then was discharged home under stable condition at she was not having any symptoms and improved markedly. Patient was asked to follow up with her warehouser to ensure that she receives iron infusion in the future and be followed up closely for her iron deficiency anemia. Patient was also asked to follow up with the GI physician for a possible EGD and colonoscopy to be done outpatient to find out the etiology behind the inadequate dietary of symptom of her RN. Patient demonstrated understanding and thus was discharged home under stable condition. While here in the hospital patient was found several times taking her medications Soma from home after repeatedly telling the patient that she is not to take any medications from home when all her medications will be given here in the hospital. Patient continued to take medications for pain from home. Patient and family at bedside again was educated extensively on medication compliance and drug abuse. - Disposition Disposition: ROUTINE DISCHARGE Condition: GOOD Patient Discharge Instructions: Please f/u with PCP and Hematology in the clinic in 1 to 2 days post discharge. You have a history of Iron def Anemia and will be needed Iron IV transfusion. You will need to make an appt with PCP and Hematology for that Diet: Regular Activity: Ad macho
== END 2017-08-25 10:50 | disposition home or self-care (01) ==
LOC: ER 00:59 → ERHOLD 03:45 → 4TH 04:59
PROVIDERS: ADMIT Hospitalist; ATTEND Hospitalist
PROC: 30233N1 Transfusion of Nonautologous Red Blood Cells into Peripheral Vein, Percutaneous Approach (ICD-10-PCS; principal; 2017-08-24)
DX: D50.9 Iron deficiency anemia, unspecified (principal); G89.4 Chronic pain syndrome; F41.9 Anxiety disorder, unspecified; Z88.0 Allergy status to penicillin; Z88.2 Allergy status to sulfonamides; Z85.42 Personal history of malignant neoplasm of other parts of uterus; Z96.643 Presence of artificial hip joint, bilateral
CPT/HCPCS: 36415; 51702; 80048; 81003; 81015; 85014; 85018; 85025; 86850; 86900; 86901; 87086; 87088; 96374; 99285; G0378; J1940; J2270; J2405; J7030; P9016

== ENCOUNTER 2017-09-14 09:48 | Day surgery (SDC) | payer BC ==
--- OUTSIDE RECORDS SUMMARY | 2017-09-14 09:51 | XMS REPORT | Clinical Summary ---
:1955 Author Organization [facility] Address [address] [place] [id number] Care Team Providers Name Role Phone Suleman [...] Ancillary Orders Eliazar Mckenna III, MD after 09/13/2016 Family History Medical History Relation Name Comments [...] 70.8 kg (156 lb) 02/07/2017 1:52 PM [employer]IOR [employer] Height 167.6 cm (5' 6") 02/07/2017 1:52 PM [employer]IOR [employer] Body Mass Index 25.18 02/07/2017 1:52 PM SENIOR [employer] Plan of Treatment Health Maintenance Due Date Last Done Comments CERVICAL CANCER SCREENING 1978 BREAST CANCER SCREENING 12/03/2007 COLON CANCER SCREENING 12/03/2007 SHINGRIX VACCINE (#1) 12/03/2007 INFLUENZA VACCINE 11/02/2017 Results MRI Pelvis W Wo Contrast (02/07/2017 2:40 PM) Specimen Performing Laboratory [address] [address] Narrative EXAMINATION:MRI PELVIS W WO CONTRAST CLINICAL [...] evidence to suggest an acute pelvic fracture. [id number] Procedure Note Interface, Radiology Results Incoming - 02/07/2017 4:23 PM SENIOR [employer] EXAMINATION: MRI PELVIS W WO CONTRAST CLINICAL [...] evidence to suggest an acute pelvic fracture. [id number] Estimated GFR (02/07/2017 1:44 PM) Component Value [...] Caucasians and Americans. Specimen Performing Laboratory Blood [facility] DEPARTMENT OF PATHOLOGY AND GENOMIC MEDICINE [address] [place] [id number] POC creatinine (02/07/2017 1:44 PM) Component Value Ref Range POC creatinine 0.3 (L)Comment: Testing performed on the ISTAT 0.5 - 0.9 mg/dl instrument by RN [id number]. Specimen Performing Laboratory Blood [facility] DEPARTMENT OF PATHOLOGY AND GENOMIC MEDICINE [address] [place] [id number] MRI Lumbar Spine Wo Contrast (12/31/2016 4:51 PM) Specimen Performing Laboratory [facility] [address] [place] [address] Narrative EXAMINATION:MRI LUMBAR SPINE WO CONTRAST CLINICAL [...] or foraminal narrowing in the lumbar spine. [facility]-[id number] Procedure Note Interface, Radiology Results 12/31/2016 4:58 [...] or foraminal narrowing in the lumbar spine. [facility]-[id number] XR Lumbar Spine Complete 4+ Vw (12/31/2016 2:06 PM) Specimen Performing Laboratory [facility] [address] [place] [address] Narrative 5. View lumbar spine with flexion-extension: Patient is a total hip replacement. General appearance is one of osteopenia. There is advanced degenerative changes of the entire lumbar spine including facet joints, mostly the 2 lower segments. There is a compression fracture with vertebral plana of L1. CT Spine External Study (12/17/2016 1:44 PM) Specimen Performing Laboratory [facility] [address] [place] [address] Narrative This exam was not acquired at a [facility] facility and has not been interpreted by a [facility] Provider.The exam was imported into our imaging system for comparisons purposes. after 09/13/2016 Insurance Payer Benefit Plan / Group Subscriber ID Type Phone Address BCBS BCBS CHOICE PPO/FEDERAL EMPL PPO xxxxxxxxxxxx PPO Home: [id number] [phone] [address]
[2017-09-14] MEDS ORDERED: Ringers Lactate 1,000 ML IV ONE (10:13)
[2017-09-14] MEDS ORDERED: LIDOCAINE 1% MPF 5 ML VIAL ONE (12:00)
[2017-09-14] MEDS ORDERED: PROPOFOL 200 MG/20 ML VIAL IV ONE ×2 (12:00→13:10)
[2017-09-14 12:17] LABS: Absolute Lymphocytes (CBC) 1.4 K/uL (0.7-4.9); Absolute Monocytes 0.5 K/uL (0.1-1.3); Basophils % 0.9 % (0-1.3); Eosinophils % 0.5 % (0-4.4); Hematocrit 26.8 % (36.0-45.0); Lymphocytes % 27.4 % (15.3-44.8); MCH 27.1 pg (27.0-35.0); MCV 83.9 fL (80-100); MPV 7.4 fL (7.6-11.3); Monocytes % 9.8 % (3.3-12.3)
--- NOTE | 2017-09-14 12:27 | ENDO RPT ---
[address], [address] EGD PROCEDURE REPORT EXAM DATE: 09/14/2017 PATIENT NAME: Dorita Chirinos MR#: [id number] BIRTHDATE: 1955 ATTENDING: Eliazar Brooks Dr STATUS: outpatient [employer] SERVICES: Najma Morris RN and Juliet Mcgovern RN INDICATIONS: The patient is a 61 yr old Female here for an EGD due to mid epigastric abdominal pain, early satiety, nausea and vomiting, melenic bleeding, iron deficiency anemia, and chronic unexplained diarrhea PROCEDURE PERFORMED: EGD with biopsy MEDICATIONS: Per Anesthesia. TOPICAL ANESTHETIC: none CONSENT: The patient understands the risks and benefits of the procedure and understands that these risks include, but are not limited to: sedation, allergic reaction, infection, perforation and/or bleeding. Alternative means of evaluation and treatment include, among others: physical exam, x-rays, and/or surgical intervention. The patient elects to proceed with this endoscopic procedure. DESCRIPTION OF PROCEDURE: During intra-op preparation period all mechanical medical equipment was checked for proper function. Hand hygiene and appropriate measures for infection prevention was taken. Procedure, possible complications, and alternatives including but not limited to the possibility of bleeding, perforation, tear, infection, sepsis, need for surgery, need for blood transfusion, and anesthesia related complications were explained to the patient. After the risks, benefits and alternatives of the procedure were thoroughly explained, Informed consent was verified, confirmed and timeout was successfully executed by the treatment team. The patient was placed in the left lateral position. The patient was anesthetized with topical anesthesia. Through the anesthetized oropharyngeal area, the scope was passed without any difficulty. The EG-[id number] ([id number]) endoscope was introduced through the mouth and advanced to the second portion of the duodenum. Retroflexed views revealed a large hiatal hernia. The gastroscope was then slowly withdrawn and removed. A large hiatal hernia (40 to 35 cm from the gums, 5 cm) was found. Multiple large linear erosions were found at the edge of the large hiatal hernia in the body of the stomach. Mild gastritis was found in the antrum. Multiple biopsies were obtained and sent to pathology. Small bowel biopsies obtained ADVERSE EVENTS: There were no complications. IMPRESSIONS: 1. Large hiatal hernia (40 to 35 cm from the gums, 5 cm) 2. Multiple (4) large linear erosions at the edge of the large hiatal hernia in the body of the stomach -> Easton's erosions 3. Mild gastritis in the antrum, s/p biopsies 4. Small bowel biopsies obtained with history of iron deficiency anemia chronic unexplained diarrhea RECOMMENDATIONS: 1. await biopsy results 2. acid suppression therapy REPEAT EXAM: Eliazar Brooks Dr eSigned: Eliazar Brooks Dr 09/14/2017 12:27 PM cc: Moreno Casiano CPT CODES: ICD9 CODES: PATIENT NAME: Dorita Chirinos MR#: [id number]
--- NOTE | 2017-09-14 13:03 | ENDO RPT ---
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 ESTIMATED BLOOD LOSS: None CONSENT: The patient understands the risks and benefits of the procedure and understands that these risks include, but are not limited to: sedation, allergic reaction, infection, perforation and/or bleeding. Alternative means of evaluation and treatment include, among others: physical exam, x-rays, and/or surgical intervention. The patient elects to proceed with this endoscopic procedure. DESCRIPTION OF PROCEDURE: During intra-op preparation period all mechanical medical equipment was checked for proper function. Hand hygiene and appropriate measures for infection prevention was taken. Procedure, possible complications, alternatives including, but not limited to possibility of bleeding, perforation, tear, infection, sepsis, need for surgery, need for blood transfusion, were explained to the patient. After the risks, benefits and alternatives of the procedure were thoroughly explained, Informed consent was verified, confirmed and timeout was successfully executed by the treatment team. The patient was placed in the left lateral position. A digital rectal exam was performed and revealed no abnormalities of the rectum. After appropriate level of anesthesia, the scope was passed. The EG-[id number] ([id number]) and [id number] ([id number]) endoscope was introduced through the anus and advanced to the terminal ileum which was intubated for a short distance. The quality of the prep was fair. The instrument was then slowly withdrawn as the colon was fully examined. Scope withdrawal time was 9 minutes. COLON FINDINGS: A pedunculated polyp measuring 8 mm in size was found in the ascending colon. A polypectomy was performed using snare cautery. A sessile polyp measuring 3 mm in size was found in the sigmoid colon. A polypectomy was performed using snare cautery. Mild diverticulosis was noted in the sigmoid colon. Moderate sized internal hemorrhoids were found. Retroflexed views revealed no abnormalities. The scope was then completely withdrawn from the patient and the procedure terminated. ADVERSE EVENTS: There were no complications. IMPRESSIONS: 1. 8 mm pedunculated polyp in the ascending colon; polypectomy was performed using snare cautery 2. 3 mm sessile polyp in the sigmoid colon; polypectomy was performed using snare cautery 3. Mild diverticulosis in the sigmoid colon 4. Moderate sized internal hemorrhoids 5. Intubation to terminal ileum RECOMMENDATIONS: 1. await biopsy results 2. avoid NSAIDS for 2 weeks 3. Small Bowel Follow Through 4. pillcam / capsule endoscopy RECALL: Return in 3 year(s) for Colonoscopy. Eliazar Brooks Dr eSigned: Eliazar Brooks Dr 09/14/2017 1:03 PM cc: Moreno Casiano CPT CODES: ICD9 CODES: 211.3 Benign neoplasm of colon PATIENT NAME: Dorita ChirinosJimy MR#: [id number]
[2017-09-14 13:09] LABS: Anisocytosis 1+; Blood Morphology Comment NOTED (NOT SEEN); Platelet Estimate ADEQ
[2017-09-14 13:10] LABS: Hypochromasia 1+
[2017-09-14 15:09] VITALS: TEMP 98
[2017-09-14 15:10] VITALS: BP 125/67; O2SAT 95
== END 2017-09-14 14:10 | disposition home or self-care (01) ==
LOC: ENDO 09:48
PROVIDERS: ATTEND Internal Medicine Gastroenterology
PROC: 0DB78ZX Excision of Stomach, Pylorus, Via Natural or Artificial Opening Endoscopic, Diagnostic (ICD-10-PCS; 2017-09-14)
PROC: 0DB88ZX Excision of Small Intestine, Via Natural or Artificial Opening Endoscopic, Diagnostic (ICD-10-PCS; 2017-09-14)
PROC: 0DBK8ZX Excision of Ascending Colon, Via Natural or Artificial Opening Endoscopic, Diagnostic (ICD-10-PCS; principal; 2017-09-14 11:00)
PROC: 0DBN8ZX Excision of Sigmoid Colon, Via Natural or Artificial Opening Endoscopic, Diagnostic (ICD-10-PCS; 2017-09-14 11:00)
DX: K29.50 Unspecified chronic gastritis without bleeding (principal); K25.9 Gastric ulcer, unspecified as acute or chronic, without hemorrhage or perforation; D12.5 Benign neoplasm of sigmoid colon; D12.2 Benign neoplasm of ascending colon; K29.80 Duodenitis without bleeding; K57.90 Diverticulosis of intestine, part unspecified, without perforation or abscess without bleeding; D50.9 Iron deficiency anemia, unspecified; K44.9 Diaphragmatic hernia without obstruction or gangrene; K21.9 Gastro-esophageal reflux disease without esophagitis; K64.8 Other hemorrhoids; M81.0 Age-related osteoporosis without current pathological fracture; G47.00 Insomnia, unspecified; M06.9 Rheumatoid arthritis, unspecified; Z85.42 Personal history of malignant neoplasm of other parts of uterus; Z88.0 Allergy status to penicillin; Z88.2 Allergy status to sulfonamides; Z87.891 Personal history of nicotine dependence
CPT/HCPCS: 36415; 82140; 85025; 86850; 86900; 86901; 88305; 88312

== ENCOUNTER 2017-10-29 09:03 | Observation (INO) | payer BC ==
--- NOTE | 2017-10-29 09:43 | RAD REPORT ---
EXAM DESCRIPTION: CT - CTHCSPWOC - 10/29/2017 9:30 am CLINICAL HISTORY: Trauma, head and neck injury. AMS COMPARISON: Head C Spine Mpr Wo Con dated 07/25/2015; CT HEAD CSPINE MPR WO CONTRAST dated 03/10/2012 TECHNIQUE: Axial 5 mm thick images of the head were obtained. Axial 2 mm thick images of the cervical spine were obtained with sagittal and coronal reconstruction images generated and reviewed. All CT scans are performed using dose optimization technique as appropriate and may include automated exposure control or mA/KV adjustment according to patient size. FINDINGS: CT HEAD WITHOUT CONTRAST: No acute hemorrhage, hydrocephalus or extra-axial collection is identified.No areas of brain edema or midline shift. The paranasal sinuses and mastoids are clear.The calvarium is intact. CT CERVICAL SPINE WITHOUT CONTRAST: No fracture or subluxation.Carotid atherosclerosis noted.No prevertebral soft tissues swelling is frank ntified. IMPRESSION: No acute intracranial or cervical spine findings.
[2017-10-29 10:21] LABS: Urine Blood 1+ (NEG); Urine Glucose NEGATIVE (NEG); Urine Protein 1+ (NEG); Urine Specific Gravity 1.025 (1.005-1.030)
[2017-10-29 10:22] LABS: Absolute Lymphocytes (CBC) 1.3 K/uL (0.7-4.9); Absolute Monocytes 0.4 K/uL (0.1-1.3); Absolute Neutrophil 1.1 K/uL (1.8-8.0); Eosinophils % 1.4 % (0-4.4); Hematocrit 33.9 % (36.0-45.0); Lymphocytes % 45.1 % (15.3-44.8); MCH 34.9 pg (27.0-35.0); MCV 102.6 fL (80-100); MPV 6.6 fL (7.6-11.3); Monocytes % 14.2 % (3.3-12.3)
[2017-10-29 10:25] LABS: Protime INR 0.87
[2017-10-29 10:33] LABS: Barbiturates NEGATIVE (NEGATIVE); Benzodiazepines NEGATIVE (NEGATIVE); Cocaine NEGATIVE (NEGATIVE); METHAMPHETAM NEGATIVE (NEGATIVE); Methadone NEGATIVE (NEGATIVE); Opiates NEGATIVE (NEGATIVE); Phencyclidine NEGATIVE (NEGATIVE); THC Cannibis POSITIVE (NEGATIVE)
[2017-10-29 10:42] LABS: ALT/SGPT 11 U/L (12-78); AST/SGOT 14 U/L (15-37); Albumin 4.2 g/dL (3.4-5.0); Alcohol Serum/Plasma < 3 mg/dL (<3); Alkaline Phosphatase 102 U/L (45-117); BUN Blood Urea Nitrogen 10 mg/dL (7-18); Bicarbonate 28 mmol/L (21-32); Bilirubin Direct < 0.1 mg/dL (0-0.2); Bilirubin Total 0.2 mg/dL (0.2-1.0); Glucose Level 116 mg/dL (74-106); Magnesium 2.1 mg/dL (1.8-2.4); NT PRO-BNP 215 pg/mL (<125); Sodium Level 133 mmol/L (136-145)
--- NOTE | 2017-10-29 11:15 | ER ---
Nurse's Notes [facility] Name: Dorita Chirinos Age: 61 yrs Sex: Female : 1955 Arrival Date: 10/29/2017 Time: 09:08 Bed 2 Private MD: Diagnosis: Altered mental status, unspecified;Superficial injury of head Presentation: 10/29 08:50 Mechanism of Injury: Fall. Trauma event details: Injury occurred in the [facility], Injury occurred: at home. Injury occurred: October 29, 2017. 09:13 Presenting complaint: EMS states: Found on ground by unconscious, appears to ph have fallen but is not sure when it occurred, last seen by last night, injury noted to forehead, VSS but pt responsive to painful stimuli only. Transition of care: patient was not received from another setting of care. Onset of symptoms was October 29, 2017. Risk Assessment: Do you want to hurt yourself or someone else? Patient reports no desire to harm self or others. Initial Sepsis Screen: Does the patient meet any 2 criteria? No. Patient's initial sepsis screen is negative. Does the patient have a suspected source of infection? No. Patient's initial sepsis screen is negative. Care prior to arrival: None. 09:13 Method Of Arrival: EMS: [email or web address] 09:13 Acuity: AGAPITO 2 ph Trauma Activation: Alert Physician: ED Physician; Name: Lon; Notified At: 08:50; Arrived At: 08:50 Physician: General Surgeon; Name: ; Notified At: 08:50; Arrived At: Specialty not needed Physician: Radiology; Name: Ashish Kothari; Notified At: 08:50; Arrived At: 08:51 Physician: Respiratory; Name: ; Notified At: 08:50; Arrived At: Specialty not needed Physician: Lab; Name: ; Notified At: 08:50; Arrived At: Specialty not needed Historical: - Allergies: 09:13 Morphine; ph 09:13 PENICILLINS; ph 09:13 Sulfa (Sulfonamide Antibiotics); ph - Home Meds: 09:13 Soma Oral [Active]; ph - PMHx: 09:13 Anxiety; Chronic pain; GERD; Hypertension; L1 Issues; ovarian cancer; Vascular Necrosis;ph - Immunization history:: Adult Immunizations unknown. - Social history:: Smoking status: unknown. - Immunization history: Last tetanus immunization: unknown. - Ebola Screening: : No symptoms or risks identified at this time. Screenin:00 Fall Risk Fall in past 12 months (25 points). No secondary diagnosis (0 pts). IV access jl7 (20 points). Ambulatory Aid- None/Bed Rest/Nurse Assist (0 pts). Gait- Weak (10 pts.). Mental Status- Overestimates/Forgets Limitations (15 pts.). Total Carrasco Fall Scale indicates High Risk Score (45 or more points). Fall prevention measures have been instituted. Side Rails Up X 2 Placed Close to Nursing Station Frequent Obs/Assessments Occuring Family Present and informed to notify staff if the need to leave the bedside As available patient and family educated on Fall Prevention Program and Strategies. 10:17 Abuse screen: Pt unable to verbalize. Tuberculosis screening: No symptoms or risk jl7 factors identified. 12:07 Abuse screen: Denies threats or abuse. Denies injuries from another. Nutritional jl7 screening: No deficits noted. Primary Survey: 08:50 A: Airway: patent. Breathing/Chest: Respiratory pattern: snoring, Respiratory effort: jl7 grunting, Breath sounds: clear, bilaterally. Chest inspection: symmetrical rise and fall of the chest. Circulation: Cardiac rhythm: sinus rhythm Heart tones present. Pulses: palpable right radial artery, right dorsalis pedis artery, left radial artery, left dorsalis pedis artery, left carotid pulse and right carotid pulse. Skin color: pink, Skin temperature: warm. Disability Painful Stimuli. 09:05 Reassessment Airway Airway Patent Breathing/Chest Respiratory pattern Regular jl7 Respiratory effort Grunting Breath sounds Clear Chest inspection Symmetrical. Secondary Survey: 09:30 HEENT: Head Other Small laceration noted to hairline at forehead. Gastrointestinal: No jl7 deficits noted. : No deficits noted. Musculoskeletal: No deficits noted. Injury Description: Bruise sustained to lateral aspect of right thigh is purple, yellow. Assessment: 09:17 Reassessment: Pt taken to CT, accompanied by Elizabeth Wilks RN. ph 11:00 General: Appears comfortable, Behavior is unresponsive. Pain: Complains of pain in jl7 right leg and left leg Pain does not radiate. Pain currently is 10 out of 10 on a pain scale. Pain began years ago. Is continuous. Neuro: Level of Consciousness is obeys commands, stuporous, Oriented to person, place, time, Speech is slurred. EENT: No signs and/or symptoms were reported regarding the EENT system. Cardiovascular: Heart tones S1 S2 present Patient's skin is warm and dry. Respiratory: Airway is patent Respiratory effort is even, unlabored, Respiratory pattern is regular, symmetrical, Breath sounds are clear bilaterally. GI: No signs and/or symptoms were reported involving the gastrointestinal system. : No signs and/or symptoms were reported regarding the genitourinary system. Derm: Skin is pink, warm \\T\\ dry. Musculoskeletal: Reports "I can't move my legs." Pt able to wiggle toes. Provider notified. Injury Description: Laceration sustained to at hairline on forehead. 12:00 Reassessment: No changes from previously documented assessment. Patient and/or family jl7 updated on plan of care and expected duration. Pain level reassessed. Patient is alert, oriented x 3, equal unlabored respirations, skin warm/dry/pink. 13:39 Reassessment: Pt requesting pain medications. Provider notified, VO received for 5 mg jl7 Seneca, PO. Pt refused 5 mg Seneca, states "It won't work. I take Suboxone." Provider notified, 30 mg Toradol IVP ordered. Pt refused 30 mg Toradol IVP. Pt's states "It's not going to work." Provider notified, no new orders received at this time. 13:53 Reassessment: Attempted to call report, told the room is not clean and the nurse is in jl7 with another pt at this time and asked to call back in 10 min. Vital Signs: 09:15 BP 149 / 100; Pulse 109; Resp 16; Temp 97.7; Pulse Ox 94% on R/A; Weight 79.38 kg; ph Height 5 ft. 6 in. (167.64 cm); 10:15 BP 126 / 88; Pulse 81; Resp 18; Pulse Ox 100% ; ph 10:45 BP 142 / 88; Pulse 87; Resp 16; Pulse Ox 98% on R/A; ph 11:15 BP 153 / 82; Pulse 86; Resp 16; Pulse Ox 100% on R/A; ph 11:45 BP 131 / 77; Pulse 70; Resp 18; Pulse Ox 100% on R/A; ph 12:45 BP 126 / 75; Pulse 79; Resp 16; Pulse Ox 99% ; Pain 10/10; jl7 13:45 BP 123 / 74; Pulse 69; Resp 15; Pulse Ox 98% ; Pain 10/10; jl7 09:15 Body Mass Index 28.25 (79.38 kg, 167.64 cm) ph Melanie Coma Score: 08:50 Eye Response: none(1). Verbal Response: none(1). Motor Response: withdraws from jl7 pain(4). Total: 6. 10:45 Eye Response: to voice(3). Verbal Response: incomprehensible(2). Motor Response: ph localizes pain(5). Total: 10. 11:15 Eye Response: to voice(3). Verbal Response: inappropriate words(3). Motor Response: ph localizes pain(5). Total: 11. 11:45 Eye Response: to voice(3). Verbal Response: oriented(5). Motor Response: obeys ph commands(6). Total: 14. 12:45 Eye Response: spontaneous(4). Verbal Response: oriented(5). Motor Response: obeys jl7 commands(6). Total: 15. 13:45 Eye Response: spontaneous(4). Verbal Response: oriented(5). Motor Response: obeys jl7 commands(6). Total: 15. Trauma Score (Adult): 08:50 Eye Response: none(0); Verbal Response: none(0); Motor Response: withdraws from jl7 pain(1); Systolic BP: > 89 mm Hg(4); Respiratory Rate: 10 to 29 per min(4); [place]ore Score: 6; Trauma Score: 9 09:20 Eye Response: to pain(0); Verbal Response: incomprehensible(0); Motor Response: jl7 withdraws from pain(1); Systolic BP: > 89 mm Hg(4); Respiratory Rate: 10 to 29 per min(4); Melanie Score: 8; Trauma Score: 9 10:17 Eye Response: to pain(0); Verbal Response: incomprehensible(0); Motor Response: jl7 withdraws from pain(1); Systolic BP: > 89 mm Hg(4); Respiratory Rate: 10 to 29 per min(4); [place] Score: 8; Trauma Score: 9 10:45 Eye Response: to voice(0); Verbal Response: incomprehensible(0); Motor Response: ph localizes pain(1); Systolic BP: > 89 mm Hg(4); Respiratory Rate: 10 to 29 per min(4); Melanie Score: 10; Trauma Score: 9 11:15 Eye Response: to voice(0); Verbal Response: inappropriate words(0); Motor Response: ph localizes pain(1); Systolic BP: > 89 mm Hg(4); Respiratory Rate: 10 to 29 per min(4); [place] Score: 11; Trauma Score: 9 11:45 Eye Response: to voice(0); Verbal Response: oriented(1); Motor Response: obeys ph commands(2); Systolic BP: > 89 mm Hg(4); Respiratory Rate: 10 to 29 per min(4); [place]ore Score: 14; Trauma Score: 11 ED Course: 09:00 compliance monitor on. Pulse ox on. NIBP on. jl7 09:08 Patient arrived in ED. ss 09:08 Francisco Forrest MD is Attending Physician. kdr 09:15 Triage completed. ph 09:17 Arm band placed on. ph 09:29 CT completed. Patient moved to CT via stretcher. Patient moved back from CT. cw1 09:30 CT Head C Spine In Process Unspecified. EDMS 09:32 XRAY Chest (1 view) In Process Unspecified. EDMS 09:40 Initial lab(s) drawn, by me, sent to lab. jl7 10:00 Pierce cath inserted, using sterile technique, 16 Fr., by me, balloon inflated, to jl7 gravity drainage, urine specimen collected. returned clear yellow urine. Patient tolerated poorly. 10:06 Elizabeth Calix RN is Primary Nurse. jl7 10:17 Patient has correct armband on for positive identification. Placed in gown. Bed in low jl7 position. Call light in reach. Side rails up X2. 10:17 Oxygen administration via nasal cannula. jl7 10:30 Inserted saline lock: 24 gauge in right wrist, using aseptic technique. ,using aseptic jl7 technique. inserted by RASHMI Law. 11:14 Beck Dang DO is Hospitalizing Provider. kdr 11:59 Thermoregulation: warm blanket given to patient. ph 14:15 No provider procedures requiring assistance completed. Patient admitted, IV remains in jl7 place. Administered Medications: 13:53 Not Given (Patient Refused): Seneca 5 mg-325 mg 1 tabs PO once jl7 13:53 Not Given (Patient Refused): TORadol 30 mg IVP once jl7 Intake: 11:15 PO: 0ml; Total: 0ml. ph Outcome: 11:15 Decision to Hospitalize by Provider. kdr 13:45 Patient's length of stay in the Emergency Department was greater than 2 hours. Awaiting jl7 bed assignmentPatient's length of stay extended due to 14:13 Admitted to Tele accompanied by tech, family with patient, via stretcher, room 429, jl7 with chart, Report called to RASHMI Cartwright 14:13 Condition: stable 14:13 Discharge instructions given to patient, family, Instructed on the need for admit, Demonstrated understanding of instructions. 14:34 Patient left the ED. jl7 Signatures: Dispatcher [employer] EDMS Francisco Forrest MD MD kdr Smirch, Shelby, RN RN ss Woodley, Crystal cw1 Jess Juárez RN RN Elizabeth Calix RN RN jl7 Corrections: (The following items were deleted from the chart) 12:05 11:45 Melanie Score=13, Trauma Score=11, ph ph 12:05 11:45 GCS: 13, ph ph
--- NOTE | 2017-10-29 11:16 | EDPHYS ---
Physician Documentation [facility] Name: Dorita Chirinos Age: 61 yrs Sex: Female : 1955 Arrival Date: 10/29/2017 Time: 09:08 Bed 2 Private MD: ED Physician Francisco Forrest HPI: 10/29 11:15 This 61 yrs old Female presents to ER via EMS with complaints of Head Injury kdr With LOC-Adult. 11:16 The patient presents with confusion, decreased mental status, decreased responsiveness. kdr Onset: The symptoms/episode began/occurred just prior to arrival. Possible causes: drug use, Fall, Closed head injury. Associated signs and symptoms: The patient has no apparent associated signs or symptoms. Current symptoms: In the emergency department the patient's symptoms are unchanged from the initial presentation. Patient's baseline: Neuro: alert and fully oriented, Motor: Generally weak and uses a walker to be mobile. It is unknown whether or not the patient has had similar symptoms in the past. It is unknown whether or not the patient has recently seen a physician. The reports that the patient had been sleeping in her lounge chair (they both do) when she apparently got up and out of the chair and collapsed on the floor next to his chair which woke him. He was not able to arose her and called EMS. . Historical: - Allergies: 09:13 Morphine; ph 09:13 PENICILLINS; ph 09:13 Sulfa (Sulfonamide Antibiotics); ph - Home Meds: 09:13 Soma Oral [Active]; ph - PMHx: 09:13 Anxiety; Chronic pain; GERD; Hypertension; L1 Issues; ovarian cancer; Vascular Necrosis;ph - Immunization history:: Adult Immunizations unknown. - Social history:: Smoking status: unknown. - Immunization history: Last tetanus immunization: unknown. - Ebola Screening: : No symptoms or risks identified at this time. ROS: 11:16 Constitutional: Unable to assess secondary to the patient's AMS kdr 11:16 Unable to obtain ROS due to altered mental status. Exam: 11:16 Constitutional: This is a well developed, well nourished patient who is altered but in kdr no acute distress. Head/Face: Normocephalic, atraumatic except for < 1 cm lac at the hairline on the left forehead. There is also a small lac at the corner of her mouth on the left Eyes: Pupils equal round (2 mm) and poorly reactive to light, extra-ocular motions not tested. Lids and lashes normal. Conjunctiva and sclera are non-icteric and not injected. Cornea within normal limits. Periorbital areas with no swelling, redness, or edema. Neck: Trachea midline, no thyromegaly or masses palpated, and no cervical lymphadenopathy. Supple, full range of motion without nuchal rigidity, or vertebral point tenderness. No Meningismus. Chest/axilla: Normal chest wall appearance and motion. Nontender with no deformity. No lesions are appreciated. Cardiovascular: Regular rate and rhythm with a normal S1 and S2. No gallops, murmurs, or rubs. Normal PMI, no JVD. No pulse deficits. Respiratory: Lungs have equal breath sounds bilaterally, clear to auscultation and percussion. No rales, rhonchi or wheezes noted. No increased work of breathing, no retractions or nasal flaring. Abdomen/GI: Soft, non-tender, with normal bowel sounds. No distension or tympany. No guarding or rebound. No evidence of tenderness throughout. Back: No spinal tenderness. No costovertebral tenderness. Full range of motion. Skin: Warm, dry with normal turgor. Normal color with no rashes, no lesions, and no evidence of cellulitis. MS/ Extremity: Pulses equal, no cyanosis. Neurovascular intact. Full, normal range of motion. 11:16 Neuro: Orientation: unable to test, Mentation: slow to respond, confused, Motor: moves all fours, Appears to be generally weak especially in the lower extremities, Gait: not tested. 11:16 Psych: Behavior/mood is Altered mental status and not reliable historian. Affect is Vital Signs: 09:15 BP 149 / 100; Pulse 109; Resp 16; Temp 97.7; Pulse Ox 94% on R/A; Weight 79.38 kg; ph Height 5 ft. 6 in. (167.64 cm); 10:15 BP 126 / 88; Pulse 81; Resp 18; Pulse Ox 100% ; ph 10:45 BP 142 / 88; Pulse 87; Resp 16; Pulse Ox 98% on R/A; ph 11:15 BP 153 / 82; Pulse 86; Resp 16; Pulse Ox 100% on R/A; ph 11:45 BP 131 / 77; Pulse 70; Resp 18; Pulse Ox 100% on R/A; ph 12:45 BP 126 / 75; Pulse 79; Resp 16; Pulse Ox 99% ; Pain 10/10; jl7 13:45 BP 123 / 74; Pulse 69; Resp 15; Pulse Ox 98% ; Pain 10/10; jl7 09:15 Body Mass Index 28.25 (79.38 kg, 167.64 cm) ph [place] Coma Score: 08:50 Eye Response: none(1). Verbal Response: none(1). Motor Response: withdraws from jl7 pain(4). Total: 6. 10:45 Eye Response: to voice(3). Verbal Response: incomprehensible(2). Motor Response: ph localizes pain(5). Total: 10. 11:15 Eye Response: to voice(3). Verbal Response: inappropriate words(3). Motor Response: ph localizes pain(5). Total: 11. 11:45 Eye Response: to voice(3). Verbal Response: oriented(5). Motor Response: obeys ph commands(6). Total: 14. 12:45 Eye Response: spontaneous(4). Verbal Response: oriented(5). Motor Response: obeys jl7 commands(6). Total: 15. 13:45 Eye Response: spontaneous(4). Verbal Response: oriented(5). Motor Response: obeys jl7 commands(6). Total: 15. Trauma Score (Adult): 08:50 Eye Response: none(0); Verbal Response: none(0); Motor Response: withdraws from jl7 pain(1); Systolic BP: > 89 mm Hg(4); Respiratory Rate: 10 to 29 per min(4); Melanie Score: 6; Trauma Score: 9 09:20 Eye Response: to pain(0); Verbal Response: incomprehensible(0); Motor Response: jl7 withdraws from pain(1); Systolic BP: > 89 mm Hg(4); Respiratory Rate: 10 to 29 per min(4); Melanie Score: 8; Trauma Score: 9 10:17 Eye Response: to pain(0); Verbal Response: incomprehensible(0); Motor Response: jl7 withdraws from pain(1); Systolic BP: > 89 mm Hg(4); Respiratory Rate: 10 to 29 per min(4); Melanie Score: 8; Trauma Score: 9 10:45 Eye Response: to voice(0); Verbal Response: incomprehensible(0); Motor Response: ph localizes pain(1); Systolic BP: > 89 mm Hg(4); Respiratory Rate: 10 to 29 per min(4); [place] Score: 10; Trauma Score: 9 11:15 Eye Response: to voice(0); Verbal Response: inappropriate words(0); Motor Response: ph localizes pain(1); Systolic BP: > 89 mm Hg(4); Respiratory Rate: 10 to 29 per min(4); Melanie Score: 11; Trauma Score: 9 11:45 Eye Response: to voice(0); Verbal Response: oriented(1); Motor Response: obeys ph commands(2); Systolic BP: > 89 mm Hg(4); Respiratory Rate: 10 to 29 per min(4); Melanie Score: 14; Trauma Score: 11 MDM: 11:15 Patient medically screened. kdr 11:37 Data reviewed: vital signs, nurses notes, lab test result(s), EKG, radiologic studies. kdr Counseling: I had a detailed discussion with the patient and/or guardian regarding: the historical points, exam findings, and any diagnostic results supporting the discharge/admit diagnosis, lab results, radiology results, the need for further work-up and treatment in the hospital. 10/29 09:09 Order name: Basic Metabolic Panel; Complete Time: 11: [facility] 10/29 09:09 Order name: CBC with Diff; Complete Time: 17:10 [facility] 10/29 09:09 Order name: Ckmb; Complete Time: 11:03 [facility] 10/29 09:09 Order name: LFT's; Complete Time: 11:03 [facility] 10/29 09:09 Order name: Magnesium; Complete Time: 11:03 [facility] 10/29 09:09 Order name: NT PRO-BNP; Complete Time: 11:03 [facility] 10/29 09:09 Order name: PT-INR; Complete Time: 11: [facility] 10/29 09:09 Order name: Ptt, Activated; Complete Time: 11:03 [facility] 10/29 09:09 Order name: Troponin (emerg Dept Use Only); Complete Time: 11: [facility] 10/29 09:09 Order name: UDS; Complete Time: 11:03 kdr 10/29 09:09 Order name: ETOH Level; Complete Time: 11:03 kdr 10/29 10:06 Order name: Urine Dipstick--Ancillary (enter results); Complete Time: 11:03 eb 10/29 11:55 Order name: Basic Metabolic Panel EDMS 10/29 11:55 Order name: Basic Metabolic Panel EDMS 10/29 11:55 Order name: Basic Metabolic Panel EDMS 10/29 11:55 Order name: Basic Metabolic Panel EDMS 10/29 11:55 Order name: CBC with Automated Diff EDMS 10/29 11:55 Order name: CBC with Automated Diff EDMS 10/29 11:55 Order name: CBC with Automated Diff EDMS 10/29 11:55 Order name: CBC with Automated Diff EDMS 10/29 11:55 Order name: Magnesium EDMS 10/29 11:55 Order name: Magnesium EDMS 10/29 11:55 Order name: Magnesium EDMS 10/29 11:55 Order name: Magnesium EDMS 10/29 11:55 Order name: T4 Free EDMS 10/29 11:55 Order name: T4 Free EDMS 10/29 11:55 Order name: Thyroid Stimulating Hormone EDMS 10/29 11:55 Order name: Thyroid Stimulating Hormone EDMS 10/29 11:56 Order name: Urinalysis EDMS 10/29 12:03 Order name: Manual Differential; Complete Time: 17:10 [facility] 10/29 09:09 Order name: XRAY Chest (1 view); Complete Time: 17:10 [facility] 10/29 09:09 Order name: EKG; Complete Time: 09:10 [facility] 10/29 09:09 Order name: Cardiac monitoring; Complete Time: 10:06 [facility] 10/29 09:09 Order name: EKG - Nurse/Tech; Complete Time: 10:06 kdr 10/29 09:09 Order name: IV Saline Lock; Complete Time: 10: kdr 10/29 09:09 Order name: Labs collected and sent; Complete Time: 10: kdr 10/29 09:09 Order name: O2 Per Protocol; Complete Time: 10:07 kdr 10/29 09:09 Order name: O2 Sat Monitoring; Complete Time: 10: kdr 10/29 09:09 Order name: Urine Dipstick-Ancillary (obtain specimen); Complete Time: 10: [facility] 10/29 09:09 Order name: CT Head C Spine; Complete Time: 11:03 [facility] 10/29 09:10 Order name: Pierce; Complete Time: 10:06 [facility] 10/29 11:36 Order name: Spine Lumbar Wo Con; Complete Time: 17:10 [facility] 10/29 11:36 Order name: Thoracic Spine W/o Cont; Complete Time: 17:10 [facility] 10/29 11:55 Order name: Abdomen ; Complete Time: 17:10 [facility] 10/29 11:55 Order name: Physical Therapy Consult [facility] 10/29 11:55 Order name: Full Liquid [facility] 10/29 11:57 Order name: Abdomen [facility] Administered Medications: 13:53 Not Given (Patient Refused): [place] 5 mg-325 mg 1 tabs PO once jl7 13:53 Not Given (Patient Refused): TORadol 30 mg IVP once jl7 Disposition: 10/29/17 11:15 Hospitalization ordered by Beck Dang for Observation. Preliminary diagnosis are Altered mental status, unspecified, Superficial injury of head. - Bed requested for Telemetry/MedSurg (observation). - Status is Observation. jl7 - Condition is Fair. - Problem is new. - Symptoms have improved. UTI on Admission? No Signatures: Dispatcher [employer] EDAK Francisco Forrest MD MD kdr Martinez, Eric em1 Jess Juárez, RN RN Elizabeth Calix RN RN jl7 Valerie Kitchen Corrections: (The following items were deleted from the chart) 11:18 11:15 Hospitalization Ordered by Beck Dang DO for Observation. Preliminary eb diagnosis is Altered mental status, unspecified; Superficial injury of head. Bed requested for Telemetry/MedSurg (observation). Status is Observation. Condition is Fair. Problem is new. Symptoms have improved. UTI on Admission? No. kdr 12:39 11:18 10/29/2017 11:15 Hospitalization Ordered by Beck Dang DO for Observation. em1 Preliminary diagnosis is Altered mental status, unspecified; Superficial injury of head. Bed requested for Telemetry/MedSurg (observation). Status is Observation. Condition is Fair. Problem is new. Symptoms have improved. UTI on Admission? No. eb 14:34 12:39 10/29/2017 11:15 Hospitalization Ordered by Beck Dang DO for Observation. jl7 Preliminary diagnosis is Altered mental status, unspecified; Superficial injury of head. Bed requested for Telemetry/MedSurg (observation). Status is Observation. Condition is Fair. Problem is new. Symptoms have improved. UTI on Admission? No. em1
--- NOTE | 2017-10-29 11:46 | RAD REPORT ---
EXAM DESCRIPTION: RAD - Chest Single View - 10/29/2017 9:31 am CLINICAL HISTORY: AMS Chest pain. COMPARISON: Chest Single View dated 01/15/2017; Chest Pa And Lat (2 Views) dated 09/06/2016; Chest Sin gle View dated 07/08/2016; Chest Single View dated 09/30/2015 FINDINGS: Portable technique limits examination quality. Emphysematous changes are present throughout the lungs with linear atelectasis in left lung base. A h iatal hernia is likely present. The heart is mildly enlarged in size. No displaced fractures.Vertebro plasty cement is present in the lower thoracic spine. IMPRESSION: COPD.
[2017-10-29] MEDS ORDERED: SODIUM CHLORIDE 0.9% 10ML INJ IV PRN (11:47)
[2017-10-29] MEDS ORDERED: ALBUTEROL 2.5 MG/3 ML NEB SOL NEB PRN (11:47)
[2017-10-29] MEDS ORDERED: LORazepam 2 MG/ML VIAL IV PRN (11:47)
[2017-10-29] MEDS ORDERED: IPRATROPIUM BROM 0.5MG/2.5ML NEB PRN (11:47)
[2017-10-29] MEDS: NA CHLORIDE 0.9% 1,000 ML IV SCH ×2 (12:00→16:14)
[2017-10-29 12:06] LABS: Anisocytosis 3+; Blood Morphology Comment NOTED (NOT SEEN); Platelet Estimate ADEQ
[2017-10-29 12:07] LABS: Poikilocytosis SLIGHT
--- NOTE | 2017-10-29 12:24 | RAD REPORT ---
EXAM DESCRIPTION: CT - Thoracic Spine W/o Cont - 10/29/2017 12:08 pm CLINICAL HISTORY: Radiculopathy. head injury with LOC COMPARISON: Head C Spine Mpr Wo Con dated 10/29/2017; Head C Spine Mpr Wo Con dated 07/25/2015; CT HEA D CSPINE MPR WO CONTRAST dated 03/10/2012; Head C Spine Cap W Con dated 01/15/2017 TECHNIQUE: Axial CT imaging through the thoracic spine was performed with coronal and sagittal re-fo rmatted images. All CT scans are performed using dose optimization technique as appropriate and may include automated exposure control or mA/KV adjustment according to patient size. FINDINGS: Evidence of previous mild T12 and moderate to severe L1 compression fractures noted. Verte broplasty cement is noted within both of these fractures. An acute compression fracture is not seen. No significant thoracic canal compromise is present. No paraspinal masses or hematoma. A small hiatal hernia is seen. IMPRESSION: No acute thoracic spine finding is seen. Prior compression fractures of T12 and L1 are n oted with vertebroplasty cement in place.
--- NOTE | 2017-10-29 12:28 | RAD REPORT ---
EXAM DESCRIPTION: CT - Spine Lumbar Wo Con - 10/29/2017 12:07 pm CLINICAL HISTORY: Radiculopathy. head injury with LOC COMPARISON: Head C Spine Cap W Con dated 01/15/2017; Head C Spine Mpr Wo Con dated 10/29/2017; Thora cic Spine W/o Cont dated 10/29/2017 TECHNIQUE: Axial noncontrast CT imaging of the lumbar spine was performed with coronal and sagittal re-formatted images. All CT scans are performed using dose optimization technique as appropriate and may include automated exposure control or mA/KV adjustment according to patient size. FINDINGS: High-grade compression fracture of L1 and mild compression fracture of T12 noted. These ar e remote fractures with vertebroplasty cement in place. Mild narrowing of the central canal at the le ade of L1 is present without significant canal compromise identified. No aggressive marrow pattern or malalignment. Paraspinal tissues are normal in thickness. No paraspinal abscess or hematoma seen. Cholecystectomy clips are seen. A small hiatal hernia. IMPRESSION: Old compression fractures affecting T12 on L1 with vertebroplasty cement in place. No significant central canal compromise seen.
--- NOTE | 2017-10-29 12:35 | RAD REPORT ---
EXAM DESCRIPTION: CT - Abdomen Pelvis Wo Contrast - 10/29/2017 12:11 pm CLINICAL HISTORY: Abdominal pain. N/V, Fall with Hx of abdominal pain COMPARISON: Abdomen Pelvis W Contrast dated 07/08/2016Abdomen Pelvis W Contrast dated 07/08/2016; CT ABDOMEN PELVIS WO CONTRAST dated 07/19/2009 TECHNIQUE: CT imaging of the abdomen and pelvis was performed without contrast. Solid organ, bowel a nd vascular assessment is limited due to lack of IV and oral contrast. All CT scans are performed using dose optimization technique as appropriate and may include automated exposure control or mA/KV adjustment according to patient size. FINDINGS: Mild linear subsegmental atelectasis is present both lung bases.Small moderate hiatal nemo ia is seen. The liver demonstrates no focal mass or biliary dilatation. Cholecystectomy clips are seen. The splee n, pancreas, adrenal glands and kidneys are within normal limits. No bowel obstruction, free air, free fluid or abscess. Streak artifact from bilateral hip arthroplas ties limits intrapelvic assessment. The appendix is not identified as a discrete structure, however, no secondary findings of appendicitis are identified. No acute fractures demonstrated. IMPRESSION: Limited examination does not demonstrate an acute abnormality. A limited non-contrast examination was performed as detailed.
--- NOTE | 2017-10-29 12:59 | P.HP ---
Certification for Inpatient Patient admitted to: Observation With expected LOS: <2 Midnights Patient will require the following post-hospital care: None Practitioner: I am a practitioner with admitting privileges, knowledge of patient current condition, hospital course, and medical plan of care. Services: Services provided to patient in accordance with Admission requirements found in Title 42 Section 412.3 of the Code of Federal Regulations Patient History Date of Service: 10/29/17 Primary Care Provider: Dr. Casiano; Pain management-Dr. Watts; GI-Dr. Thapa Reason for admission: Fall, altered mental status History of Present Illness: 61-year-old female presented emergency room after a fall and altered mental status. Most information came from the . The reports the patient has chronic medical conditions including anxiety, chronic pain, GERD with hiatal hernia, hypertension, COPD and marijuana use. He reports that he and the had been sleeping in lounge chairs. Apparently the patient got up, fell, and woke him up. She was not able to get up. She also had some mental status changes. Patient is taking muscle relaxers and medication for pain. Patient was brought in to the emergency room for further evaluation. In the ER patient evaluated. Blood pressures remain stable. CT of the head showed no acute abnormality. CT spine and lumbar region shows no acute changes. There is an old compression fraction to T 12th through L1 with cement from vertebroplasty. CT abdomen unremarkable. No fractures noted. White count 2.9, hemoglobin 11.5. Sodium 133, potassium 4.0. UA unremarkable. Drug screen was positive for marijuana. Due to nature the findings the patient was admitted for observation. When I evaluated the patient, she appeared groggy but appropriate. She reported pain all over. She reports that she is taking so box on. She admits using marijuana. She does smoke and occasionally drinks alcohol. The reports that the patient has been recently evaluated by GI for anemia. She had a colonoscopy done. She is to have a pill camera done. He also reports the patient as having some nausea and vomiting. He further reports the patient has a hiatal hernia. She is to see a specialist for this as recommended by GI. Allergies Penicillins Allergy (Mild, Verified 09/14/17 11:51) Itching Sulfa (Sulfonamide Antibiotics) [Sulfa(Sulfonamide Antibiotics)] Allergy (Mild, Verified 09/14/17 11:51) Itching/Hives/Rash Home medications list reviewed: Yes Home Medications: Buprenorphine HCl/Naloxone HCl [Suboxone 8 mg-2 mg Sl Film] 1 film SL TID Carisoprodol [Soma*] 350 mg PO BID 08/24/17 Dicyclomine [Bentyl] 20 mg PO DAILY 09/14/17 - Past Medical/Surgical History Diabetic: No -: Anxiety -: History of uterine cancer -: Chronic pain -: Compression fracture with vertebroplasty -: GERD with hiatal hernia -: Hypertension -: COPD -: Tobacco and marijuana use -: Bilateral hip replacement -: -: Bilateral wrist surgery -: Vertobroplasty -: Hand surgery Psychosocial/ Personal History: The patient is . She lives with her . She has 1 child who is distant. - Family History Family History: Reviewed- Non-Contributory - Social History Smoking Status: Heavy Tobacco smoker (>10 cigarettes/day) Counseled patient to stop smoking for: more than 10 minutes Alcohol use: Yes CD- Drugs: No Caffeine use: Yes Place of Residence: Home Review of Systems Mainly obtained from the . General: Weakness, Malaise, As per HPI Eyes: Unremarkable ENT: Unremarkable Respiratory: Unremarkable Cardiovascular: Unremarkable Gastrointestinal: Nausea, Vomiting, As per HPI Genitourinary: Unremarkable Musculoskeletal: Back Pain, As per HPI Integumentary: Unremarkable Neurological: As per HPI Lymphatics: Unremarkable Physical Examination - Physical Exam General: Alert, In no apparent distress, Cooperative, Other (Patient appears groggy. She is able to answer questions.) HEENT: Other (Small laceration to the forehead. Dry mucous membranes.), EOMI Neck: Supple, No Thyromegaly Respiratory: Clear to auscultation bilaterally, Normal air movement Cardiovascular: Normal pulses, Regular rate/rhythm Gastrointestinal: Normal bowel sounds, Soft and benign, Non-distended, No tenderness, No masses, No rebound, No guarding Musculoskeletal: No erythema, No tenderness, No warmth Integumentary: Other (Dry skin.) Neurological: Normal speech, Normal strength at 5/5 x4 extr, Normal tone, Other (Patient appears groggy from a medication.) - Studies Laboratory Data (last 24 hrs) 10/29/17 09:58: PT 10.3, INR 0.87, APTT 33.7 10/29/17 09:58: WBC 2.9 L, Hgb 11.5 L, Hct 33.9 L, Plt Count 234 10/29/17 09:58: Sodium 133 L, Potassium 4.0, BUN 10, Creatinine 0.40 L, Glucose 116 H, Magnesium 2.1, Total Bilirubin 0.2, AST 14 L, ALT 11 L, Alkaline Phosphatase 102 Assessment and Plan - Problems (Diagnosis) (1) Altered mental status Current Visit: Yes Status: Acute Plan: Likely from medication. Patient takes muscle relaxer and Suboxone. She is seen by pain management. There is some concern that she miss took her medication. Patient appears slightly dehydrated. Will continue with IV fluids. So far CT scan head and, neck, abdomen and pelvis unremarkable. What physical therapy assess ambulation tomorrow. We will hold pain medication and muscle relaxer. Will address compliance. Qualifiers: Altered mental status type: somnolence Qualified Code(s): R40.0 - Somnolence (2) Accidental medication overdose Current Visit: Yes Status: Acute Plan: Suspect accidental overdose with her pain medication and muscle relaxer. Will continue as above. Qualifiers: Encounter type: initial encounter Qualified Code(s): T50.901A - Poisoning by unspecified drugs, medicaments and biological substances, accidental ( unintentional), initial encounter (3) Hiatal hernia with GERD Current Visit: Yes Status: Chronic Plan: Patient with history of GERD and hiatal hernia. Will provide PPI. Patient seen by GI recently. She is to follow up with the specialist up in [place] to further address her hiatal hernia. (4) Hypertension Current Visit: Yes Status: Chronic Plan: Will provide medication. Will monitor and adjust appropriately. Qualifiers: Hypertension type: essential hypertension Qualified Code(s): I10 - Essential (primary) hypertension (5) COPD (chronic obstructive pulmonary disease) Current Visit: Yes Status: Chronic Plan: Will provide medication. Qualifiers: COPD type: chronic bronchitis Chronic bronchitis type: unspecified Qualified Code(s): J42 - Unspecified chronic bronchitis (6) Tobacco abuse Current Visit: Yes Status: Chronic Plan: Will address cessation education. (7) Marijuana use Current Visit: Yes Status: Chronic Plan: Will address cessation education. (8) Compression fx, lumbar spine Current Visit: Yes Status: Chronic Plan: Patient with chronic compression fracture to T12-L1. Patient with history of vertebroplasty. Patient seen by pain management. Qualifiers: Lumbar vertebra fracture level: L1 (9) Fall Current Visit: No Status: Acute Plan: Continue as above. Will have physical therapy assess ambulation tomorrow. Qualifiers: Encounter type: initial encounter Qualified Code(s): W19.XXXA - Unspecified fall, initial encounter (10) History of uterine cancer Current Visit: No Status: Chronic Plan: Stable at this time. (11) Anemia Current Visit: No Status: Chronic Plan: Patient with history of iron deficiency anemia. Patient recently evaluated by GI. reports that the patient has had a colonoscopy and EGD. She is to have a pill camera done soon. Qualifiers: Anemia type: iron deficiency Iron deficiency anemia type: other iron deficiency Qualified Code(s): D50.8 - Other iron deficiency anemias (12) Anxiety Current Visit: No Status: Chronic Plan: Will provide medication as needed (13) Chronic pain syndrome Current Visit: No Status: Chronic Plan: Patient is seen by pain management. Continue as above. Will hold muscle relaxer at this time. Discharge Plan: Home Plan to discharge in: 24 Hours - Advance Directives Does patient have a Living Will: No Does patient have a Durable POA for Healthcare: No - Code Status/Comfort Care Code Status Assessed: Yes Time Spent Managing Pts Care (In Minutes): 55
[2017-10-29] MEDS ORDERED: HYDROCODONE/APAP 5/325 MG TAB ONE (13:34)
[2017-10-29] MEDS ORDERED: KETOROLAC 30 MG/ML INJ ONE (13:40)
[2017-10-29 16:03] VITALS: BMI 29.5
[2017-10-29] MEDS: ACETAMINOPHEN 500 MG TAB PO PRN (16:14)
[2017-10-29] MEDS: CARVEDILOL 3.125 MG TAB PO SCH (16:59)
[2017-10-29] MEDS: SUBOXONE SL SCH (20:19)
[2017-10-29] MEDS: ARFORMOTEROL TARTRATE 15 MCG/2 ML VIAL.NEB NEB SCH (20:41)
[2017-10-29] MEDS: TRAMADOL HCL 50 MG TAB PO PRN (22:01)
[2017-10-30] MEDS: KETOROLAC 30 MG/ML INJ IV PRN ×2 (00:50→06:32)
[2017-10-30] MEDS: TRAMADOL HCL 50 MG TAB PO PRN ×2 (04:38→13:21)
[2017-10-30 05:23] LABS: Absolute Lymphocytes (CBC) 0.8 K/uL (0.7-4.9); Absolute Monocytes 0.4 K/uL (0.1-1.3); Absolute Neutrophil 2.3 K/uL (1.8-8.0); Basophils % 0.8 % (0-1.3); Eosinophils % 0.8 % (0-4.4); Hematocrit 35.2 % (36.0-45.0); MCH 35.2 pg (27.0-35.0); MCV 102.5 fL (80-100); MPV 6.6 fL (7.6-11.3); Monocytes % 10.9 % (3.3-12.3); RBC Red Blood Cell Count 3.44 M/uL (3.86-4.86)
[2017-10-30 05:48] LABS: BUN Blood Urea Nitrogen 3 mg/dL (7-18); Bicarbonate 27 mmol/L (21-32); Glucose Level 90 mg/dL (74-106); Magnesium 2.3 mg/dL (1.8-2.4); Sodium Level 135 mmol/L (136-145)
[2017-10-30] MEDS: CARVEDILOL 3.125 MG TAB PO SCH ×2 (06:33→17:00)
[2017-10-30] MEDS: ONDANSETRON 4 MG/2 ML VIAL IV PRN ×2 (07:22→13:22)
[2017-10-30 08:23] LABS: Anisocytosis 1+; Macrocytosis 1+; Ovalocytes 1+; Polychromasia 1+
[2017-10-30 08:24] LABS: Platelet Estimate ADEQ
[2017-10-30] MEDS: ARFORMOTEROL TARTRATE 15 MCG/2 ML VIAL.NEB NEB SCH (08:25)
[2017-10-30 08:27] LABS: Blood Morphology Comment NOTED (NOT SEEN)
[2017-10-30 08:32] LABS: Urine White Blood Cell Casts OK
[2017-10-30] MEDS: SUBOXONE SL SCH ×2 (08:50→13:24)
[2017-10-30] MEDS ORDERED: MORPHINE 2 MG/ML SYR IV ONE (08:52)
[2017-10-30] MEDS ORDERED: METOCLOPRAMIDE 10 MG/2mL INJ IV SCH (09:00)
[2017-10-30] MEDS ORDERED: ENOXAPARIN 40 MG/0.4 ML SQ SCH (09:00)
[2017-10-30] MEDS ORDERED: PANTOPRAZOLE 40 MG INJ IVP SCH (09:00)
[2017-10-30 09:20] VITALS: O2SAT 97
[2017-10-30] MEDS ORDERED: MORPHINE 4 MG/ML SYR IV ONE (10:00)
--- NOTE | 2017-10-30 14:31 | P.PN ---
Subjective Date of Service: 10/30/17 Primary Care Provider: Dr. Casiano; Pain management-Dr. Watts; GI-Dr. Thapa Chief Complaint: Fall, altered mental status Subjective: Other (Patient with nausea and vomiting this morning. Much more alert today.) Physical Examination - Vital Signs Temperature: 97.7 F Blood Pressure: 140/85 Pulse: 66 Respirations: 16 Pulse Ox (%): 97 - Physical Exam General: Alert, In no apparent distress, Cooperative HEENT: Atraumatic Neck: Supple Respiratory: Clear to auscultation bilaterally, Normal air movement Cardiovascular: Normal pulses, Regular rate/rhythm Gastrointestinal: Normal bowel sounds, Soft and benign, Non-distended, No masses , No rebound, No guarding, Tenderness (Mild pain to the epigastric region) Musculoskeletal: No erythema, No tenderness, No warmth Integumentary: No erythema, No warmth, No cyanosis Neurological: Normal speech, Normal strength at 5/5 x4 extr, Normal tone, Normal affect - Studies Medications List Reviewed: Yes Assessment & Plan - Problems (Diagnosis) (1) Altered mental status Current Visit: Yes Status: Acute Plan: Likely from medication. Patient takes muscle relaxer and Suboxone. She is seen by pain management. Patient is more alert. Patient admits taking more muscle relaxer than normal. Will ambulate patient. Patient with nausea and vomiting this morning. Patient also admits to marijuana use. This may be related to this. She is seen by GI. She has had an EGD and colonoscopy. She is to have a pill camera done. Will advance her diet. If She tolerates this she may be able to go home today. Qualifiers: Altered mental status type: somnolence Qualified Code(s): R40.0 - Somnolence (2) Accidental medication overdose Current Visit: Yes Status: Acute Plan: Suspect accidental overdose with her pain medication and muscle relaxer. Patient admits taking extra muscle relaxers. She was counseled not to do this. Qualifiers: Encounter type: initial encounter Qualified Code(s): T50.901A - Poisoning by unspecified drugs, medicaments and biological substances, accidental ( unintentional), initial encounter (3) Hiatal hernia with GERD Current Visit: Yes Status: Chronic Plan: Patient with history of GERD and hiatal hernia. Will continue PPI. Patient has had major workup by GI. Patient with nausea and vomiting this morning. Will advance her diet. If she tolerates her diet she can possibly go home later today. Hyper emesis may be related to marijuana use. (4) Hypertension Current Visit: Yes Status: Chronic Plan: Will provide medication. Will monitor and adjust appropriately. Qualifiers: Hypertension type: essential hypertension Qualified Code(s): I10 - Essential (primary) hypertension (5) COPD (chronic obstructive pulmonary disease) Current Visit: Yes Status: Chronic Plan: Will provide medication. Qualifiers: COPD type: chronic bronchitis Chronic bronchitis type: unspecified Qualified Code(s): J42 - Unspecified chronic bronchitis (6) Tobacco abuse Current Visit: Yes Status: Chronic Plan: Will address cessation education. (7) Marijuana use Current Visit: Yes Status: Chronic Plan: Will address cessation education. (8) Compression fx, lumbar spine Current Visit: Yes Status: Chronic Plan: Patient with chronic compression fracture to T12-L1. Patient with history of vertebroplasty. Patient seen by pain management. Qualifiers: Lumbar vertebra fracture level: L1 (9) Fall Current Visit: No Status: Acute Plan: Continue as above. Will have physical therapy assess ambulation tomorrow. Qualifiers: Encounter type: initial encounter Qualified Code(s): W19.XXXA - Unspecified fall, initial encounter (10) History of uterine cancer Current Visit: No Status: Chronic Plan: Stable at this time. (11) Anemia Current Visit: No Status: Chronic Plan: Patient with history of iron deficiency anemia. Patient recently evaluated by GI. reports that the patient has had a colonoscopy and EGD. She is to have a pill camera done soon. Qualifiers: Anemia type: iron deficiency Iron deficiency anemia type: other iron deficiency Qualified Code(s): D50.8 - Other iron deficiency anemias (12) Anxiety Current Visit: No Status: Chronic Plan: Will provide medication as needed (13) Chronic pain syndrome Current Visit: No Status: Chronic Plan: Patient is seen by pain management. Continue as above. Will hold muscle relaxer at this time. (14) Nausea & vomiting Current Visit: Yes Status: Acute Plan: This may be related to marijuana use. Will monitor closely. Will advance diet. If tolerates diet can be discharged home later today. Qualifiers: Vomiting type: unspecified Vomiting Intractability: unspecified Qualified Code(s): R11.2 - Nausea with vomiting, unspecified Discharge Plan: Home Plan to discharge in: 24 Hours Time Spent Managing Pts Care (In Minutes): 55
[2017-10-30 16:20] VITALS: BP 130/76; TEMP 97.6
[2017-10-30] MEDS: ACETAMINOPHEN 500 MG TAB PO PRN (16:56)
--- NOTE | 2017-10-30 17:01 | P.DS ---
Admission Date: 10/29/17 Discharge Date: 10/30/17 Primary Care Provider: Dr. Casiano; Pain management-Dr. Watts; GI-Dr. Thapa Disposition: ROUTINE DISCHARGE Discharge Condition: GOOD Reason for Admission: Fall, altered mental status - Problems (1) Altered mental status Current Visit: Yes Status: Acute Qualifiers: Altered mental status type: somnolence Qualified Code(s): R40.0 - Somnolence (2) Accidental medication overdose Current Visit: Yes Status: Acute Qualifiers: Encounter type: initial encounter Qualified Code(s): T50.901A - Poisoning by unspecified drugs, medicaments and biological substances, accidental ( unintentional), initial encounter (3) Hiatal hernia with GERD Current Visit: Yes Status: Chronic (4) Hypertension Current Visit: Yes Status: Chronic Qualifiers: Hypertension type: essential hypertension Qualified Code(s): I10 - Essential (primary) hypertension (5) COPD (chronic obstructive pulmonary disease) Current Visit: Yes Status: Chronic Qualifiers: COPD type: chronic bronchitis Chronic bronchitis type: unspecified Qualified Code(s): J42 - Unspecified chronic bronchitis (6) Tobacco abuse Current Visit: Yes Status: Chronic (7) Marijuana use Current Visit: Yes Status: Chronic (8) Compression fx, lumbar spine Current Visit: Yes Status: Chronic Qualifiers: Lumbar vertebra fracture level: L1 (9) Fall Current Visit: No Status: Acute Qualifiers: Encounter type: initial encounter Qualified Code(s): W19.XXXA - Unspecified fall, initial encounter (10) History of uterine cancer Current Visit: No Status: Chronic (11) Anemia Current Visit: No Status: Chronic Qualifiers: Anemia type: iron deficiency Iron deficiency anemia type: other iron deficiency Qualified Code(s): D50.8 - Other iron deficiency anemias (12) Anxiety Current Visit: No Status: Chronic (13) Chronic pain syndrome Current Visit: No Status: Chronic (14) Nausea & vomiting Current Visit: Yes Status: Acute Qualifiers: Vomiting type: unspecified Vomiting Intractability: unspecified Qualified Code(s): R11.2 - Nausea with vomiting, unspecified Brief History of Present Illness: 61-year-old female presented emergency room after a fall and altered mental status. Most information came from the . The reports the patient has chronic medical conditions including anxiety, chronic pain, GERD with hiatal hernia, hypertension, COPD and marijuana use. He reports that he and the had been sleeping in lounge chairs. Apparently the patient got up, fell, and woke him up. She was not able to get up. She also had some mental status changes. Patient is taking muscle relaxers and medication for pain. Patient was brought in to the emergency room for further evaluation. In the ER patient evaluated. Blood pressures remain stable. CT of the head showed no acute abnormality. CT spine and lumbar region shows no acute changes. There is an old compression fraction to T 12th through L1 with cement from vertebroplasty. CT abdomen unremarkable. No fractures noted. White count 2.9, hemoglobin 11.5. Sodium 133, potassium 4.0. UA unremarkable. Drug screen was positive for marijuana. Due to nature the findings the patient was admitted for observation. When I evaluated the patient, she appeared groggy but appropriate. She reported pain all over. She reports that she is taking so box on. She admits using marijuana. She does smoke and occasionally drinks alcohol. The reports that the patient has been recently evaluated by GI for anemia. She had a colonoscopy done. She is to have a pill camera done. He also reports the patient as having some nausea and vomiting. He further reports the patient has a hiatal hernia. She is to see a specialist for this as recommended by GI. Hospital Course: During the course of her stay her altered mental status resolved. This is likely related to medication-muscle relaxer. Patient admitted using too much muscle relaxer yesterday. Patient has a history of chronic pain. Patient seen by pain management. She is taking Suboxone as well. CT scan showed no acute changes to the head, cervical spine and abdomen. At discharge she will continue with her medication. She is to follow up with pain management. She is not to use extra doses of her medication unless this has been addressed by her pain management physician. Patient has hypertension. She will continue with carvedilol 3.125 mg 1 pill twice daily. Recommendation is to maintain blood pressures less 150/80. Further adjustment can be done by her PCP. Patient has GERD with HH. Patient has been evaluated by GI. Patient had recent workup including EGD, colonoscopy. She is to have a pill camera done as an outpatient. She also was to see a specialist to deal with her hiatal hernia in the near future. Patient has chronic nausea. This is likely related to marijuana use. Patient admits marijuana use. Patient was positive for marijuana. Cessation addressed in detail. Patient with history of tobacco abuse. Patient likely has underlying COPD. Recommendation is for the patient to continue with Symbicort 160 mcg 2 puffs twice daily and Pro air 2 puffs 3 times a day as needed for shortness of breath. Patient may follow up with pulmonology as an outpatient to further address. Tobacco cessation addressed Vital Signs/Physical Exam: Temp Pulse Resp BP Pulse Ox 97.6 F 66 16 130/76 96 10/30/17 16:00 10/30/17 16:00 10/30/17 16:00 10/30/17 16:00 10/30/17 16:00 General: Alert, In no apparent distress, Oriented x3, Cooperative HEENT: Atraumatic Neck: Supple Respiratory: Clear to auscultation bilaterally, Normal air movement Cardiovascular: Normal pulses, Regular rate/rhythm Gastrointestinal: Normal bowel sounds, Soft and benign, Non-distended, No tenderness, No masses, No rebound, No guarding Musculoskeletal: No erythema, No tenderness, No warmth Integumentary: No tenderness/swelling, No erythema, No warmth, No cyanosis Neurological: Normal speech, Normal strength at 5/5 x4 extr, Normal tone, Normal affect Lymphatics: No axilla or inguinal lymphadenopathy Laboratory Data at Discharge: WBC 3.5 K/uL (4.3-10.9) L D 10/30/17 04:47 Hgb 12.1 g/dL (12.0-15.0) 10/30/17 04:47 Hct 35.2 % (36.0-45.0) L 10/30/17 04:47 Plt Count 221 K/uL (152-406) 10/30/17 04:47 PT 10.3 SECONDS (9.5-12.5) 10/29/17 09:58 INR 0.87 10/29/17 09:58 APTT 33.7 SECONDS (24.3-36.9) 10/29/17 09:58 Sodium 135 mmol/L (136-145) L 10/30/17 04:47 Potassium 4.0 mmol/L (3.5-5.1) 10/30/17 04:47 BUN 3 mg/dL (7-18) L 10/30/17 04:47 Creatinine 0.30 mg/dL (0.55-1.3) L 10/30/17 04:47 Glucose 90 mg/dL (74-106) 10/30/17 04:47 Magnesium 2.3 mg/dL (1.8-2.4) 10/30/17 04:47 Total Bilirubin 0.2 mg/dL (0.2-1.0) 10/29/17 09:58 AST 14 U/L (15-37) L 10/29/17 09:58 ALT 11 U/L (12-78) L 10/29/17 09:58 Alkaline Phosphatase 102 U/L (45-117) 10/29/17 09:58 Home Medications: Carisoprodol [Soma*] 350 mg PO BID 08/24/17 Buprenorphine HCl/Naloxone HCl [Suboxone 8 mg-2 mg Sl Film] 1 film SL TID Albuterol Sulfate [Proair Hfa] 8.5 gm IH TID PRN #1 hfa.aer.ad 10/30/17 Budesonide/Formoterol Fumarate [Symbicort 160-4.5 Mcg Inhaler] 2 puff IH BID #1 hfa.aer.ad 10/30/17 Carvedilol [Coreg*] 3.125 mg PO BID 6AM 6PM #60 tab 10/30/17 Pantoprazole [Protonix Tab] 40 mg PO DAILY #30 tab 10/30/17 Suboxone 1 film SL TID 10/30/17 New Medications: Albuterol Sulfate [Proair Hfa] 8.5 gm IH TID PRN #1 hfa.aer.ad PRN Reason: Shortness Of Breath Budesonide/Formoterol Fumarate [Symbicort 160-4.5 Mcg Inhaler] 2 puff IH BID #1 hfa.aer.ad Carvedilol [Coreg*] 3.125 mg PO BID 6AM 6PM #60 tab Pantoprazole [Protonix Tab] 40 mg PO DAILY #30 tab Patient Discharge Instructions: 1. Patient will need to follow up her PCP in 1 week to follow up this hospitalization. 2. Patient presented with altered mental status secondary to medication-muscle relaxer. Patient admitted using too much muscle relaxer yesterday. Patient has a history of chronic pain. Patient seen by pain management. She is also taking Suboxone on as well. CT scan showed no acute changes to the head, cervical spine and abdomen. At discharge she will continue with her medication. She is to follow up with pain management. She is not to use extra doses of her medication unless this has been addressed by her pain management physician. 3. Patient has hypertension. She will continue with carvedilol 3.125 mg 1 pill twice daily. Recommendation is to maintain blood pressures less 150/80. Further adjustment can be done by her PCP. 4. Patient has GERD with HH. Patient has been evaluated by GI. Patient had recent workup including EGD, colonoscopy. She is to have a pill camera done as an outpatient. She also was to see a specialist to deal with her hiatal hernia in the near future. 5. Patient has chronic nausea. This is likely related to marijuana use. Patient admits marijuana use. Patient was positive for marijuana. Cessation addressed in detail. 6. Patient with history of tobacco abuse. Patient likely has underlying COPD. Recommendation is for the patient to continue with Symbicort 160 mcg 2 puffs twice daily and Pro air 2 puffs 3 times a day as needed for shortness of breath. Patient may follow up with pulmonology as an outpatient to further address. 7. Tobacco cessation addressed Diet: AHA Activity: Fall precautions Time spent managing pt's care (in minutes): 55
[2017-10-30] MEDS ORDERED: BUPRENORPHINE HCL SL SCH (21:00)
[2017-10-30] MEDS ORDERED: NALOXONE HCL SL SCH (21:00)
== END 2017-10-30 18:23 | disposition home or self-care (01) ==
LOC: ER 09:03 → ERHOLD 12:04 → 4TH 14:15
PROVIDERS: ADMIT Family Medicine; ATTEND Family Medicine
DX: R41.82 Altered mental status, unspecified (principal); T48.205A Adverse effect of unspecified drugs acting on muscles, initial encounter; Y92.009 Unspecified place in unspecified non-institutional (private) residence as the place of occurrence of the external cause; F41.9 Anxiety disorder, unspecified; D64.9 Anemia, unspecified; G89.4 Chronic pain syndrome; D50.9 Iron deficiency anemia, unspecified; K21.9 Gastro-esophageal reflux disease without esophagitis; K44.9 Diaphragmatic hernia without obstruction or gangrene; I10 Essential (primary) hypertension; F12.90 Cannabis use, unspecified, uncomplicated; R11.0 Nausea; J44.9 Chronic obstructive pulmonary disease, unspecified; Z85.42 Personal history of malignant neoplasm of other parts of uterus; Z88.0 Allergy status to penicillin; Z88.2 Allergy status to sulfonamides; Z96.643 Presence of artificial hip joint, bilateral
CPT/HCPCS: 36415; 51702; 70450; 71045; 72125; 72128; 72131; 74176; 80048; 80076; 80307; 80320; 81003; 82553; 83735; 83880; 84439; 84443; 84484; 85025; 85610; 85730; 94640; 97163; 99285; C9113; G0378; J1650; J2405; J2765; J7030; J7605

== ENCOUNTER 2019-04-26 07:55 | Emergency (ER) | payer BC ==
[2019-04-26 08:25] LABS: Absolute Lymphocytes (CBC) 0.7 K/uL (0.7-4.9); Basophils % 0.5 % (0-1.3); Hematocrit 35.8 % (36.0-45.0); Lymphocytes % 7.9 % (15.3-44.8); MPV 7.8 fL (7.6-11.3); RBC Red Blood Cell Count 3.55 M/uL (3.86-4.86)
[2019-04-26 08:40] LABS: BUN Blood Urea Nitrogen 18 mg/dL (7-18); Bicarbonate 23 mmol/L (21-32); Glucose Level 78 mg/dL (74-106); Potassium 3.8 mmol/L (3.5-5.1); Sodium Level 139 mmol/L (136-145); Troponin (Emerg Dept Use Only) < 0.02 ng/mL (0.0-0.045)
[2019-04-26 08:48] LABS: Protime INR 1.04
--- NOTE | 2019-04-26 09:28 | RAD REPORT ---
EXAM DESCRIPTION: CT - CTHCSPWOC - 04/26/2019 9:14 am CLINICAL HISTORY: Fall, head and neck injury COMPARISON: CT head and cervical October 2017 TECHNIQUE: Axial 5 mm thick images of the head were obtained. Axial 2 mm thick images of the cervic al spine were obtained with sagittal and coronal reconstruction images generated and reviewed. All CT scans are performed using dose optimization technique as appropriate and may include automated exposure control or mA/KV adjustment according to patient size. FINDINGS: No intracranial hemorrhage, mass, edema or acute intracranial finding. No suspicion for acute infarct ion. Minimal atrophy and chronic ischemic changes are present. Ventricles are within normal limits fo r the amount of volume loss. Mastoid air cells are clear. No acute paranasal sinus finding. No globe or orbit abnormality seen. Cervical body height and alignment are normal. No significant disc space narrowing. No fracture or ac saadia bony abnormality. No paraspinal mass or hematoma. IMPRESSION: Negative CT head examination for acute or significant finding. No significant change fro m comparison. Negative CT cervical spine examination for acute or significant finding. Degenerative changes are mi ld and stable from comparison.
--- NOTE | 2019-04-26 09:30 | RAD REPORT ---
EXAM DESCRIPTION: RAD - Chest Single View - 04/26/2019 9:08 am CLINICAL HISTORY: fall, dizziness, fall with left-sided chest pain COMPARISON: Chest Single View dated 10/29/2017None. TECHNIQUE: AP portable chest image was obtained 04/26/2019 9:08 am . FINDINGS: Clear of pulmonary contusion or focal process. Chronic interstitial pattern matches compar tasha. Heart and vasculature are normal. No measurable pleural effusion and no pneumothorax. No acute bony abnormality seen. No acute aortic findings suspected. IMPRESSION: No acute cardiopulmonary process. No gross rib abnormality seen. Rib detail can be further assessed with rib series as clinically warra nted.
--- NOTE | 2019-04-26 09:31 | RAD REPORT ---
EXAM DESCRIPTION: RAD - Pelvis - 04/26/2019 9:08 am CLINICAL HISTORY: BLUNT TRAUMA, fall, left-sided pelvic and hip pain COMPARISON: Pelvis dated 01/15/2017 TECHNIQUE: AP imaging of the pelvis was obtained. FINDINGS: Bilateral hip prostheses are in place. No dislocation of the femoral component. No acute p roximal femur finding. No fracture of the bony pelvis seen. Prominent degenerative change seen adjacent to each SI joint. Sa cral ala assessment is limited due to osteopenia and overlying bowel content. No significant soft tissue finding. IMPRESSION: No fracture or acute finding identifiable. No significant change from 2017 imaging.
--- NOTE | 2019-04-26 09:32 | RAD REPORT ---
EXAM DESCRIPTION: RAD - Femur Left - 04/26/2019 9:08 am CLINICAL HISTORY: Fall, left hip pain COMPARISON: January 2017 FINDINGS: No fracture is identified. Left hip prosthesis is in place with no acute component seen. T here is no dislocation or periosteal reaction noted. No acute or suspicious bony finding. No air or f oreign body in the soft tissues. IMPRESSION: Negative left femur for acute or significant finding. No significant change from 2017.
[2019-04-26 09:33] LABS: Urine Blood NEGATIVE (NEG); Urine Glucose NEGATIVE (NEG); Urine Protein NEGATIVE (NEG); Urine Specific Gravity 1.015 (1.005-1.030)
--- NOTE | 2019-04-26 09:33 | RAD REPORT ---
EXAM DESCRIPTION: RAD - Knee Right 3 View - 04/26/2019 9:08 am CLINICAL HISTORY: PAIN, fall with right-sided knee pain COMPARISON: Knee Right 3 View dated 09/06/2016; Knee Right 3 View dated 11/14/2012 FINDINGS: No fracture, dislocation or periosteal reaction.No joint effusion seen. No joint space mónica rowing. No foreign body or other soft tissue abnormality. Minimal curvilinear sclerotic foci at the diaphyseal metaphyseal junction of the femur are most likel y old bone infarction. This is a stable finding. IMPRESSION: Negative right knee for acute bone or joint finding. No significant change from 2017.
[2019-04-26] MEDS ORDERED: NA CHLORIDE 0.9% 500 ML ONE (09:35)
--- NOTE | 2019-04-26 09:40 | RAD REPORT ---
EXAM DESCRIPTION: RAD - Tib Fib Right - 04/26/2019 9:08 am CLINICAL HISTORY: PAIN, fall with leg pain COMPARISON: Tib Fib Right dated 01/15/2017None. FINDINGS: No fracture is identified. There is no dislocation or periosteal reaction noted. No acute or suspicious bony finding. No foreign body or other soft tissue abnormality. IMPRESSION: Negative right tibia & fibula examination.
[2019-04-26] MEDS ORDERED: MORPHINE 4 MG/ML SYR ONE (09:44)
[2019-04-26] MEDS ORDERED: ONDANSETRON 4 MG/2 ML VIAL ONE (09:44)
--- NOTE | 2019-04-26 09:55 | ER ---
Nurse's Notes [facility] Name: Dorita Chirinos Age: 63 yrs Sex: Female : 1955 Arrival Date: 04/26/2019 Time: 08:00 Bed 7 Private MD: Diagnosis: Vertigo;Superficial injury of head;Contusion of right knee;Contusion of left hip Presentation: 04/26 08:01 Presenting complaint: EMS states: called for fall, pt became dizzy when turning head em and fell around 0700, reports left sided hip pain, also reports hitting head, denies taking blood thinners. Transition of care: patient was not received from another setting of care. Onset of symptoms was April 26, 2019. Risk Assessment: Do you want to hurt yourself or someone else? Patient reports no desire to harm self or others. Initial Sepsis Screen: Does the patient meet any 2 criteria? HR > 90 bpm. No. Patient's initial sepsis screen is negative. Does the patient have a suspected source of infection? No. Patient's initial sepsis screen is negative. Care prior to arrival: None. 08:01 Method Of Arrival: EMS: [facility] em 08:01 Acuity: AGAPITO 3 em Historical: - Allergies: 08:03 PENICILLINS; em 08:03 Sulfa (Sulfonamide Antibiotics); em - PMHx: 08:03 Anxiety; Chronic pain; GERD; Hypertension; L1 Issues; ovarian cancer; Vascular Necrosis;em - PSHx: 08:03 stefan. hip replacement; em - Immunization history:: Adult Immunizations up to date. - Social history:: Smoking status: Patient denies any tobacco usage or history of. - Ebola Screening: : Patient negative for fever greater than or equal to 101.5 degrees Fahrenheit, and additional compatible Ebola Virus Disease symptoms Patient denies exposure to infectious person Patient denies travel to an Ebola-affected area in the 21 days before illness onset No symptoms or risks identified at this time. - Family history:: not pertinent. - Hospitalizations: : No recent hospitalization is reported. Screenin:03 Abuse screen: Denies threats or abuse. Nutritional screening: No deficits noted. em Tuberculosis screening: No symptoms or risk factors identified. Fall Risk Fall in past 12 months (25 points). Total Carrasco Fall Scale indicates Low Risk Score (25-44 pts). Side Rails Up X 2 Placed close to Nursing Station. Assessment: 08:03 General: Appears in no apparent distress. uncomfortable, Behavior is cooperative, em anxious. Pain: Complains of pain in left hip and right knee Pain currently is 10 out of 10 on a pain scale. Neuro: Level of Consciousness is awake, alert, obeys commands, Oriented to person, place, time, situation, Appropriate for age Reports dizziness. Cardiovascular: Capillary refill < 3 seconds Patient's skin is warm and dry. Respiratory: Airway is patent Respiratory effort is even, unlabored, Respiratory pattern is regular, symmetrical. GI: Patient currently denies nausea, vomiting. Derm: Skin is intact, is thin, Skin is pink, warm \T\ dry. Musculoskeletal: Capillary refill < 3 seconds, Range of motion: limited in left hip and right knee. 09:38 Reassessment: pt crying and grimacing, reports pain 10/10, provider notified. em 10:10 Reassessment: Dr. Ayala at bedside. em Vital Signs: 08:03 BP 138 / 99; Pulse 103; Resp 20; Temp 98.5; Pulse Ox 99% on R/A; Weight 97.07 kg; em Height 5 ft. 4 in. (162.56 cm); Pain 10/10; 09:37 BP 143 / 104; Pulse 109; Resp 22; Pulse Ox 100% on R/A; Pain 10/10; em 10:24 BP 138 / 94; Pulse 104; Pulse Ox 100% on R/A; em 08:03 Body Mass Index 36.73 (97.07 kg, 162.56 cm) em ED Course: 08:00 Patient arrived in ED. em 08:00 Dale Ayala MD is Attending Physician. rn 08:02 Triage completed. em 08:03 Arm band placed on. em 08:03 Patient has correct armband on for positive identification. Bed in low position. Call em light in reach. Adult w/ patient. Pulse ox on. NIBP on. 08:04 Lai Mark, RN is Primary Nurse. em 08:10 Inserted saline lock: 20 gauge in right antecubital area, using aseptic technique. [email or web address] 08:19 Initial lab(s) drawn, by me, sent to lab. kj1 09:08 XRAY Chest (1 view) In Process Unspecified. EDMS 09:08 XRAY Pelvis In Process Unspecified. EDMS 09:08 XRAY Knee RIGHT 3 view In Process Unspecified. EDMS 09:08 XRAY Femur LEFT In Process Unspecified. EDMS 09:08 XRAY Tib Fib RIGHT In Process Unspecified. EDMS 09:14 CT Head C Spine In Process Unspecified. EDMS 09:54 Raul Arce MD is Referral Physician. rn 10:45 No provider procedures requiring assistance completed. IV discontinued, intact, em bleeding controlled, No redness/swelling at site. Pressure dressing applied. Administered Medications: 09:36 Drug: NS 0.9% 500 ml Route: IV; Rate: bolus; Site: right antecubital; em 10:03 Follow up: IV Status: Completed infusion; IV Intake: 500ml em 09:46 Drug: morphine 4 mg Route: IVP; Site: right antecubital; em 10:25 Follow up: Response: No adverse reaction; Pain is unchanged, physician notified; RASS: em Restless (+1) 09:46 Drug: Zofran 4 mg Route: IVP; Site: right antecubital; em 10:40 Drug: Valium 2 mg Route: PO; sg Intake: 10:03 IV: 500ml; Total: 500ml. em Outcome: 09:55 Discharge ordered by MD. rn 10:45 Discharged to home via wheelchair, with family. em 10:45 Condition: good 10:45 Discharge instructions given to patient, family, Instructed on discharge instructions, follow up and referral plans. medication usage, Demonstrated understanding of instructions, follow-up care, medications, Prescriptions given X 3. 10:46 Patient left the ED. sg Signatures: Dispatcher [employer] William Galvin RN RN sg Lai Mark RN RN em Nieto, Roman, MD MD rn Jackson, Kandis kj1 Corrections: (The following items were deleted from the chart) 09:36 08:03 Allergies: Morphine; em em
--- NOTE | 2019-04-26 09:55 | EDPHYS ---
Physician Documentation [facility] Name: Dorita Chirinos Age: 63 yrs Sex: Female : 1955 Arrival Date: 04/26/2019 Time: 08:00 Bed 7 Private MD: ED Physician Dale Ayala HPI: 04/26 08:04 This 63 yrs old Female presents to ER via EMS with complaints of Dizziness, rn Fall Injury. 08:04 The patient presents with feeling off balance, sense of spinning. Onset: The rn symptoms/episode began/occurred 2 day(s) ago. Modifying factors: The symptoms are alleviated by nothing, the symptoms are aggravated by movement of head, standing up. Severity of symptoms: At their worst the symptoms were moderate in the emergency department the symptoms are unchanged. The patient has not experienced similar symptoms in the past. Reports has been dizzy, off balance, for 2 days now, fell today, hit back of head and left side, reports headache/left hip pain/right knee pain. No LOC. Remembers all events. . Historical: - Allergies: 08:03 PENICILLINS; em 08:03 Sulfa (Sulfonamide Antibiotics); em - PMHx: 08:03 Anxiety; Chronic pain; GERD; Hypertension; L1 Issues; ovarian cancer; Vascular Necrosis;em - PSHx: 08:03 stefan. hip replacement; em - Immunization history:: Adult Immunizations up to date. - Social history:: Smoking status: Patient denies any tobacco usage or history of. - Ebola Screening: : Patient negative for fever greater than or equal to 101.5 degrees Fahrenheit, and additional compatible Ebola Virus Disease symptoms Patient denies exposure to infectious person Patient denies travel to an Ebola-affected area in the 21 days before illness onset No symptoms or risks identified at this time. - Family history:: not pertinent. - Hospitalizations: : No recent hospitalization is reported. ROS: 08:04 Constitutional: Negative for fever, chills, and weight loss, Eyes: Negative for injury, rn pain, redness, and discharge, Neck: Negative for injury, pain, and swelling, Cardiovascular: Negative for chest pain, palpitations, and edema, Respiratory: Negative for shortness of breath, cough, wheezing, and pleuritic chest pain, Abdomen/GI: Negative for abdominal pain, nausea, vomiting, diarrhea, and constipation, Back: Negative for injury and pain, MS/Extremity: + left hip pain, + right knee pain Skin: Negative for injury, rash, and discoloration, Neuro: Negative for weakness, numbness, tingling, and seizure. Exam: 08:04 Constitutional: This is a well developed, well nourished patient who is awake, alert, rn appears in pain Head/Face: Normocephalic Eyes: Pupils equal round and reactive to light, extra-ocular motions intact. Lids and lashes normal. Conjunctiva and sclera are non-icteric and not injected. Cornea within normal limits. Periorbital areas with no swelling, redness, or edema. ENT: dry MM Neck: Trachea midline, no thyromegaly or masses palpated, and no cervical lymphadenopathy. Supple, full range of motion without nuchal rigidity, or vertebral point tenderness. No Meningismus. Chest/axilla: Normal chest wall appearance and motion. Nontender with no deformity. No lesions are appreciated. Cardiovascular: Tachycardic, regular Respiratory: Lungs have equal breath sounds bilaterally, clear to auscultation. No increased work of breathing, no retractions or nasal flaring. Abdomen/GI: soft, non-tender Back: No spinal tenderness. No costovertebral tenderness. Full range of motion. MS/ Extremity: Pulses equal, no cyanosis. + left hip pain and right knee pain with ROM, no deformity. Neuro: Awake and alert, GCS 15, oriented to person, place, time, and situation. Cranial nerves II-XII grossly intact. Motor strength 5/5 in all extremities. Sensory grossly intact. Cerebellar exam normal. Vital Signs: 08:03 BP 138 / 99; Pulse 103; Resp 20; Temp 98.5; Pulse Ox 99% on R/A; Weight 97.07 kg; em Height 5 ft. 4 in. (162.56 cm); Pain 10/10; 09:37 BP 143 / 104; Pulse 109; Resp 22; Pulse Ox 100% on R/A; Pain 10/10; em 10:24 BP 138 / 94; Pulse 104; Pulse Ox 100% on R/A; em 08:03 Body Mass Index 36.73 (97.07 kg, 162.56 cm) em MDM: 08:00 Patient medically screened. rn 09:53 Differential diagnosis: hypovolemia, idiopathic dizziness, near-syncope, vertigo. Data rn reviewed: vital signs, nurses notes, lab test result(s), EKG, radiologic studies, CT scan, plain films, and as a result, I will discharge patient. Counseling: I had a detailed discussion with the patient and/or guardian regarding: the historical points, exam findings, and any diagnostic results supporting the discharge/admit diagnosis, lab results, radiology results, the need for outpatient follow up, to return to the emergency department if symptoms worsen or persist or if there are any questions or concerns that arise at home. Response to treatment: the patient's symptoms have mildly improved after treatment, and as a result, I will discharge patient. Special discussion: I discussed with the patient/guardian in detail that at this point there is no indication for admission to the hospital. It is understood, however, that if the symptoms persist or worsen the patient needs to return immediately for re-evaluation. ED course: No acute findings on ct head/cspine/pelvis/femur/knee. Dizziness consistent with vertigo and has improved with meclizine, will dc home with neuro and pcp f/u. . 04/26 08:02 Order name: Basic Metabolic Panel; Complete Time: 08:47 rn 04/26 08:02 Order name: CBC with Diff; Complete Time: 08:47 rn 04/26 08:02 Order name: Protime (+inr); Complete Time: 09:03 04/26 08:02 Order name: Ptt, Activated; Complete Time: 09:03 04/26 08:02 Order name: Troponin (emerg Dept Use Only); Complete Time: 08:47 04/26 08:33 Order name: Urine Dipstick--Ancillary (enter results); Complete Time: 09:40 em1 04/26 08:02 Order name: CT Head C Spine; Complete Time: 09:40 rn 04/26 08:02 Order name: XRAY Chest (1 view); Complete Time: :40 rn 04/26 08:02 Order name: XRAY Pelvis; Complete Time: :40 04/26 08:02 Order name: XRAY Knee RIGHT 3 view; Complete Time: 09:40 rn 04/26 08:02 Order name: XRAY Femur LEFT; Complete Time: :40 04/26 08:09 Order name: XRAY Tib Fib RIGHT; Complete Time: 09:53 rn 04/26 08:02 Order name: EKG; Complete Time: 08:03 rn 04/26 08:02 Order name: Cardiac monitoring; Complete Time: 08:20 rn 04/26 08:02 Order name: EKG - Nurse/Tech; Complete Time: 09:37 rn 04/26 08:02 Order name: IV Saline Lock; Complete Time: 09:37 rn 04/26 08:02 Order name: Labs collected and sent; Complete Time: 08:20 rn 04/26 08:02 Order name: NPO; Complete Time: 08:20 rn 04/26 08:02 Order name: O2 Per Protocol; Complete Time: 08:20 rn 04/26 08:02 Order name: O2 Sat Monitoring; Complete Time: 08:20 rn 04/26 08:02 Order name: Urine Dipstick-Ancillary (obtain specimen); Complete Time: 08:28 rn Administered Medications: 09:36 Drug: NS 0.9% 500 ml Route: IV; Rate: bolus; Site: right antecubital; em 10:03 Follow up: IV Status: Completed infusion; IV Intake: 500ml em 09:46 Drug: morphine 4 mg Route: IVP; Site: right antecubital; em 10:25 Follow up: Response: No adverse reaction; Pain is unchanged, physician notified; RASS: em Restless (+1) 09:46 Drug: Zofran 4 mg Route: IVP; Site: right antecubital; em 10:40 Drug: Valium 2 mg Route: PO; sg Disposition: 04/26/19 09:55 Discharged to Home. Impression: Vertigo, Superficial injury of head, Contusion of right knee, Contusion of left hip. - Condition is Stable. - Discharge Instructions: Contusion, Head Injury, Adult, Vertigo, Hip Pain. - Prescriptions for Meclizine 25 mg Oral Tablet - take 1 tablet by ORAL route every 8 hours As needed; 30 tablet. Ultram 50 mg Oral Tablet - take 1 tablet by ORAL route every 6 hours As needed; 12 tablet. Cyclobenzaprine 5 mg Oral Tablet - take 1 tablet by ORAL route 3 times per day As needed; 15 tablet. - Medication Reconciliation Form, Thank You Letter, Antibiotic Education, Prescription Opioid Use form. - Follow up: Raul Arce MD; When: As needed; Reason: Recheck today's complaints, Re-evaluation by your physician. - Problem is new. - Symptoms have improved. Signatures: Dispatcher [employer] William Galvin RN RN sg Munoz, Edgar, RN RN em Williams, Irene, RN RN iw Nieto, Roman, MD MD rn Corrections: (The following items were deleted from the chart) 09:36 08:03 Allergies: Morphine; em em 10:46 09:55 04/26/2019 09:55 Discharged to Home. Impression: Vertigo; Superficial injury of sg head; Contusion of right knee; Contusion of left hip. Condition is Stable. Forms are Medication Reconciliation Form, Thank You Letter, Antibiotic Education, Prescription Opioid Use. Follow up: Raul Arce; When: As needed; Reason: Recheck today's complaints, Re-evaluation by your physician. Problem is new. Symptoms have improved. rn
[2019-04-26] MEDS ORDERED: DIAZEPAM 2 MG TABLET ONE (10:34)
[2019-04-26 10:52] VITALS: TEMP 98.5
[2019-04-26 11:02] VITALS: O2SAT 100
[2019-04-26 11:03] VITALS: BP 138/94
--- NOTE | 2019-04-26 13:37 | EKG ---
Test Date: 2019-04-26 Test Time: 09:57:47 Pastor: HELEN MEASUREMENT RESULTS: Intervals: Rate: 96 SD: 152 QRSD: 86 QT: 390 QTc: 492 [place]: P: 72 SD: 152 QRS: -11 T: 64 INTERPRETIVE STATEMENTS: Normal sinus rhythm Prolonged QT Abnormal ECG Compared to ECG 01/15/2017 22:02:05 Prolonged QT interval now present Electronically Signed On 04-26-19 13:36:53 SAT TUTOR by Sergio Marcial
== END 2019-04-26 10:46 | disposition home or self-care (01) ==
LOC: ER 07:55
DX: S00.90XA Unspecified superficial injury of unspecified part of head, initial encounter (principal); S80.01XA Contusion of right knee, initial encounter; S70.02XA Contusion of left hip, initial encounter; W19.XXXA Unspecified fall, initial encounter; Y93.9 Activity, unspecified; Y92.9 Unspecified place or not applicable; I10 Essential (primary) hypertension; Z88.0 Allergy status to penicillin; Z88.2 Allergy status to sulfonamides; Z85.43 Personal history of malignant neoplasm of ovary; Z96.653 Presence of artificial knee joint, bilateral
CPT/HCPCS: 93005; 85025; 80048; 36415; 85610; 85730; 81003; 84484; 70450; 72125; 71045; 72170; 73562; 73552; 73590; 96375; 96374; 99284; J7040; J2405

== ENCOUNTER 2023-12-09 17:13 | Emergency (ER) | payer BC, OTHER ==
[2023-12-09 18:42] LABS: Absolute Basophils 0.1 K/uL (0-0.5); Absolute Eosinophils 0.1 K/uL (0-0.5); Absolute Lymphocytes (CBC) 1.6 K/uL (0.7-4.9); Absolute Monocytes 0.6 K/uL (0.1-1.3); Absolute Neutrophil 3.4 K/uL (1.8-8.0); Basophils % 1.1 % (0-1.3); Eosinophils % 1.8 % (0-4.4); Hematocrit 31.7 % (36.0-45.0); Hemoglobin 10.8 g/dL (12.0-15.0); Lymphocytes % 27.2 % (15.3-44.8); MCH 33.6 pg (27.0-35.0); MCHC 33.9 g/dL (32.0-36.0); MPV 7.8 fL (7.6-11.3); Monocytes % 10.5 % (3.3-12.3); Neutrophils % 59.4 % (41.7-73.7); Platelets 215 thou/uL (152-406); RBC Red Blood Cell Count 3.21 M/uL (3.86-4.86); Red Cell Distribution Width 14.7 % (12.1-15.2)
[2023-12-09 18:45] LABS: Specific Gravity 1.028 (1.005-1.030); Sqamous Epithelial <5 /HPF (None Seen); Urine Bacteria None Seen /HPF (<20); Urine Bilirubin NEGATIVE (Negative); Urine Blood Negative (Negative); Urine Clarity Turbid (Clear); Urine Color Yellow (Yellow); Urine Culture Reflex Order REFLEXED; Urine Glucose NEGATIVE (Negative); Urine Ketones NEGATIVE (Negative); Urine Microscopic Reflex YN ORDER UMIC; Urine Mucus 1+ /HPF (None Seen); Urine Nitrite NEGATIVE (Negative); Urine Protein 1+ (Negative); Urine Urobilinogen Normal (Normal)
[2023-12-09 18:48] LABS: PT Prothrombin Time 10.5 SECONDS (9.4-12.5); PTT, Activated Partial Thromb 28.9 SECONDS (24.3-36.9); Protime INR 0.94
[2023-12-09 18:52] LABS: SARS-CoV-2 Antigen CONTROL BLUE LINE VIS/BG OK; SARS-CoV-2 Antigen Rapid Res Negative (Negative)
[2023-12-09 19:01] LABS: AST/SGOT 11 U/L (15-37); Albumin 3.4 g/dL (3.4-5.0); Albumin/Globulin Ratio 1.1 (1.1-1.8); Alkaline Phosphatase 71 U/L (45-117); Anion Gap 9.5 mEq/L (5.0-15.0); BUN Blood Urea Nitrogen 15 mg/dL (7-18); Bicarbonate 24 mEq/L (21-32); Bilirubin Total 0.3 mg/dL (0.2-1.0); Glomerular Filtration Rate 91 ml/min (=/>90); Glucose Level 98 mg/dL (74-106); Magnesium 1.9 mg/dL (1.6-2.4); Potassium 3.5 mEq/L (3.5-5.1); Protein, Total 6.4 g/dL (6.4-8.2); Sodium Level 139 mEq/L (136-145); Troponin High Sensitivity 13.9 pg/mL (<58.9)
[2023-12-09 19:05] LABS: ALT/SGPT < 14 U/L (13-56); Bilirubin Direct < 0.2 mg/dL (0-0.2); Bilirubin Indirect, Calculated 0.1 mg/dL (0.2-0.8)
[2023-12-09] MEDS ORDERED: NA CHLORIDE 0.9% 1,000 ML ONE (19:10)
[2023-12-09] MEDS ORDERED: DIPHENHYDRAMINE 50 MG/ML VIAL ONE (19:10)
[2023-12-09] MEDS ORDERED: METOCLOPRAMIDE 10 MG/2mL INJ ONE (19:10)
--- NOTE | 2023-12-09 19:34 | RAD REPORT ---
EXAM DESCRIPTION: CT - Head Brain Wo Cont - 12/09/2023 6:35 pm CLINICAL HISTORY: DIZZINESS COMPARISON: Head Brain Wo Cont dated 12/09/2016; Head Brain Wo Cont dated 02/09/2016 TECHNIQUE: Noncontrast head CT images were obtained without IV contrast. Multiplanar reformats were generated and reviewed. All CT scans are performed using dose optimization technique as appropriate and may include automated exposure control or mA/KV adjustment according to patient size. FINDINGS: No intracranial hemorrhage, mass, or edema. Midline structures are unremarkable. Normal ventricular caliber for age. Anderson-white matter differentiation is preserved, without evidence of acute infarct. No abnormal extra- axial fluid collections. Mastoid air cells and visualized portions of the paranasal sinuses are clear. No acute bony findings. IMPRESSION: No evidence of an acute intracranial process.
--- NOTE | 2023-12-09 19:36 | RAD REPORT ---
[facility] CLINICAL HISTORY: SOB COMPARISON: Chest Single View dated 04/26/2019; Chest Single View dated 10/29/2017; Chest Single View dated 01/15/2017; Chest Pa And Lat (2 Views) dated 09/06/2016 TECHNIQUE: Portable AP view of the chest. FINDINGS: The lungs are clear. No pneumothorax or effusion. The cardiomediastinal contours are unre markable. IMPRESSION: No acute cardiopulmonary process.
[2023-12-09] MEDS ORDERED: CEFTRIAXONE 1000 MG/VIAL ONE (21:29)
--- NOTE | 2023-12-09 22:19 | ER ---
Nurse's Notes [facility] Name: Dorita Chirinos Age: 68 yrs Sex: Female : 1955 Arrival Date: 12/09/2023 Time: 17:13 Bed 14 Private MD: Diagnosis: Dizziness and giddiness;UTI/ Urinary tract infection, site not specified;Dehydration Presentation: 12/08 17:28 Chief complaint: Patient states: "Not feeling right." Pt reports recent cold symptoms. ld1 Dizziness and weakness X 3 weeks. Coronavirus screen: At this time, the client does not indicate any symptoms associated with coronavirus-19. Ebola Screen: No symptoms or risks identified at this time. Initial Sepsis Screen: Does the patient meet any 2 criteria? No. Patient's initial sepsis screen is negative. Does the patient have a suspected source of infection? No. Patient's initial sepsis screen is negative. Risk Assessment: Do you want to hurt yourself or someone else? Patient reports no desire to harm self or others. Onset of symptoms was December 09, 2023. 17:28 Method Of Arrival: Wheelchair ld1 17:28 Acuity: AGAPITO 3 ld1 Triage Assessment: 17:30 General: Appears in no apparent distress. comfortable, Behavior is calm, cooperative, ld1 appropriate for age. Pain: Denies pain. EENT: No signs and/or symptoms were reported regarding the EENT system. Neuro: Level of Consciousness is awake, alert, obeys commands, Oriented to person, place, time, situation, Appropriate for age. Neuro: Reports dizziness, headache weakness. Cardiovascular: Capillary refill < 3 seconds Patient's skin is warm and dry. Respiratory: Airway is patent Respiratory effort is even, unlabored. GI: Abdomen is round non-distended, Reports diarrhea, nausea, vomiting. : No signs and/or symptoms were reported regarding the genitourinary system. Derm: No signs and/or symptoms reported regarding the dermatologic system. Musculoskeletal: No signs and/or symptoms reported regarding the musculoskeletal system. Historical: - Allergies: 17:28 PENICILLINS; ld1 17:28 Sulfa (Sulfonamide Antibiotics); ld1 - PMHx: 17:28 Chronic pain; Anxiety; GERD; Hypertension; L1 Issues; ovarian cancer; Vascular Necrosis;ld1 - Immunization history:: Adult Immunizations up to date. - Infectious Disease History:: Denies. - Social history:: Smoking status: Patient denies any tobacco usage or history of. Screenin:31 [facility] ED Fall Risk Assessment (Adult) History of falling in the last 3 months, cm10 including since admission No falls in past 3 months (0 pts) Confusion or Disorientation No (0 pts) Intoxicated or Sedated No (0 pts) Impaired Gait No (0 pts) Mobility Assist Device Used No (0 pt) Altered Elimination No (0 pt) Score/Fall Risk Level 0 - 2 = Low Risk Oriented to surroundings, Maintained a safe environment, Hourly rounding (assess needs \\T\\ fall precautionary measures) done. Abuse screen: Denies threats or abuse. Denies injuries from another. Nutritional screening: No deficits noted. Tuberculosis screening: No symptoms or risk factors identified. Assessment: 18:45 Reassessment: Pt reports that she has dizziness when sitting and standing during cm10 orthostatic vitals. 20:33 Reassessment: Patient appears in no apparent distress at this time. Patient and/or kj2 family updated on plan of care and expected duration. Pain level reassessed. Patient is alert, oriented x 3, equal unlabored respirations, skin warm/dry/pink. 21:46 Reassessment: Patient appears in no apparent distress at this time. Patient and/or kj2 family updated on plan of care and expected duration. Pain level reassessed. Patient is alert, oriented x 3, equal unlabored respirations, skin warm/dry/pink. Vital Signs: 17:28 BP 123 / 74; Pulse 78; Resp 18; Temp 97.5(TE); Pulse Ox 96% on R/A; Weight 63.5 kg; ld1 Height 5 ft. 3 in. ; Pain 7/10; 18:42 BP 140 / 83 Supine; Pulse 77; Resp 16; Pulse Ox 97% on R/A; cm10 18:45 BP 154 / 86 Sitting; Pulse 97; cm10 18:47 BP 143 / 84 Standing; Pulse 99; cm10 20:31 BP 112 / 68; Pulse 106; Resp 18; Pulse Ox 100% on R/A; kj2 17:28 Body Mass Index 24.80 (63.50 kg, 160.02 cm) ld1 17:28 Pain Scale: Adult ld1 ED Course: 17:19 Patient arrived in ED. 17:30 Triage completed. ld1 17:30 Arm band placed on right wrist. ld1 17:38 [facility] sb4 17:38 Elliott Galan MD is Attending Physician. sb4 18:27 Chest Single View XRAY In Process Unspecified. EDMS 18:32 Flu Sent. cm10 18:32 SARS RAPID Sent. cm10 18:32 Basic Metabolic Panel Sent. cm10 18:32 CBC with Diff Sent. cm10 18:32 Hepatic Function Sent. cm10 18:32 Magnesium Sent. cm10 18:32 Protime (+inr) Sent. cm10 18:32 Ptt, Activated Sent. cm10 18:32 Troponin High Sensitivity Sent. cm10 18:32 Urinalysis w/ reflexes Sent. cm10 18:32 Accessed peripheral vein via ultrasound, utilizing dynamic ultrasound technique Blood cm10 collected. Clean \\T\\ dry. Dressing intact. Good blood return. Flushes easily. 20G Right AC. Missed attempt(s): 20 gauge in left forearm. Bleeding controlled, band aid applied, catheter tip intact. 18:33 Initial lab(s) drawn, by me, sent to lab. Urine collected: clean catch specimen, COVID cm10 swab sent to lab. Flu and/or RSV swab sent to lab. 18:37 CT Head Brain wo Cont In Process Unspecified. EDMS 19:06 EKG done, by ED staff, reviewed by Alisia Negrete PA-C. cm10 19:30 Inserted saline lock: 24 gauge in left hand, using aseptic technique. Flushed with 10 cm10 mL NS Missed attempt(s): 22 gauge in right hand. Bleeding controlled, band aid applied, catheter tip intact. 19:30 Removal of peripheral IV. Catheter intact, dressing applied. cm10 19:31 Patient has correct armband on for positive identification. Bed in low position. Call cm10 light in reach. Side rails up X2. Client placed on continuous cardiac and pulse oximetry monitoring. NIBP monitoring applied. 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 20:31 Miguelina Higgins, RN is Primary Nurse. kj2 20:34 Assisted with bedpan. kj2 21:46 Assisted with bedpan. kj2 22:50 No provider procedures requiring assistance completed. IV discontinued, intact, vc1 bleeding controlled, No redness/swelling at site. Pressure dressing applied. 22:51 Provided Education on: drink water. vc1 Administered Medications: 19:06 CANCELLED (Physician Discretion): [id number] mg PO once sb4 19:31 Drug: NS 0.9% IV 1000 ml IV at 1 bolus Per protocol; 1000 mL bolus Route: IV; Rate: 1 cm10 bolus; Site: left hand; 19:31 Drug: metoCLOPramide IVP 10 mg IVP once; over 1 to 2 minutes Route: IVP; Site: left cm10 hand; 20:15 Follow up: Response: No adverse reaction kj2 19:31 Drug: diphenhydrAMINE IVP 25 mg IVP once Route: IVP; Site: left hand; cm10 20:15 Follow up: Response: No adverse reaction kj2 21:38 Drug: Rocephin IV 1 grams IV at calculated rate once; Given slow IV push per pharmacy kj2 instructions Route: IV; Rate: calculated rate; Site: left hand; Medication: 22:51 VIS not applicable for this client. vc1 Outcome: 22:18 Discharge ordered by MD. sb4 22:51 Discharged to home ambulatory, via wheelchair, with significant other, vc1 22:51 Condition: good 22:51 Discharge instructions given to patient, Instructed on discharge instructions, follow up and referral plans. medication usage, Demonstrated understanding of instructions, follow-up care, medications, Prescriptions given X 1, 22:52 Patient left the ED. vc1 Signatures: Dispatcher [employer] EDIA DicksonAlana, Reg Reg mr Argelia Castro RN RN ld1 Rachana Hagen RN RN vc1 Alisia Negrete PA-C PAHeather sb4 Latosha Phelps RN RN cm10 Miguelina Higgins RN RN kj2
--- NOTE | 2023-12-09 22:19 | EDPHYS ---
Physician Documentation [facility] Name: Dorita Chirinos Age: 68 yrs Sex: Female : 1955 Arrival Date: 12/09/2023 Time: 17:13 Bed 14 Private MD: SOILA Physician Elliott Galan HPI: 12/08 18:18 This 68 yrs old Female presents to ER via Wheelchair with complaints of Weakness, sb4 Dizziness. 18:19 Patient reports feeling poorly over the past 3 weeks- dizzy, weak, fatigued, nauseated. sb4 she reports history of iron deficiency anemia, has required blood transfusions in the past. Most recently, she reports some diarrhea. Historical: - Allergies: 17:28 PENICILLINS; ld1 17:28 Sulfa (Sulfonamide Antibiotics); ld1 - PMHx: 17:28 Chronic pain; Anxiety; GERD; Hypertension; L1 Issues; ovarian cancer; Vascular Necrosis;ld1 - Immunization history:: Adult Immunizations up to date. - Infectious Disease History:: Denies. - Social history:: Smoking status: Patient denies any tobacco usage or history of. ROS: 19:17 Respiratory: Negative for shortness of breath, cough, wheezing, and pleuritic chest sb4 pain, 19:17 Constitutional: Positive for fatigue, malaise, 19:17 Abdomen/GI: Positive for nausea, vomiting, and diarrhea, 19:17 Neuro: Positive for dizziness, headache, near syncope, 19:17 All other systems are negative, Exam: 19:17 Head/Face: Normocephalic, atraumatic. Eyes: Extra-ocular motions intact. Periorbital sb4 areas with no swelling, redness, or edema. ENT: Mucous membranes moist. Cardiovascular: Regular rate and rhythm with a normal S1 and S2. Respiratory: Lungs have equal breath sounds bilaterally, clear to auscultation and percussion. No rales, rhonchi or wheezes noted. No increased work of breathing, no retractions or nasal flaring. Abdomen/GI: Soft, non-tender, no distension. Skin: Warm, dry with normal turgor. Normal color with no rashes, no lesions, and no evidence of cellulitis. 19:17 Constitutional: The patient appears in no acute distress, alert, awake, Vital Signs: 17:28 BP 123 / 74; Pulse 78; Resp 18; Temp 97.5(TE); Pulse Ox 96% on R/A; Weight 63.5 kg; ld1 Height 5 ft. 3 in. ; Pain 7/10; 18:42 BP 140 / 83 Supine; Pulse 77; Resp 16; Pulse Ox 97% on R/A; cm10 18:45 BP 154 / 86 Sitting; Pulse 97; cm10 18:47 BP 143 / 84 Standing; Pulse 99; cm10 20:31 BP 112 / 68; Pulse 106; Resp 18; Pulse Ox 100% on R/A; kj2 17:28 Body Mass Index 24.80 (63.50 kg, 160.02 cm) ld1 17:28 Pain Scale: Adult ld1 MDM: 17:38 Patient medically screened. sb4 22:17 Data reviewed: vital signs, nurses notes, lab test result(s), radiologic studies, and sb4 as a result, I will discharge patient. Counseling: I had a detailed discussion with the patient and/or guardian regarding the historical points, exam findings, and any diagnostic results supporting the discharge/admit diagnosis, lab results, radiology results, to return to the emergency department if symptoms worsen or persist or if there are any questions or concerns that arise at home. 12/08 18:03 Order name: Basic Metabolic Panel; Complete Time: 19:06 4 12/08 18:03 Order name: CBC with Diff; Complete Time: 18:46 sb4 12/08 18:03 Order name: Hepatic Function; Complete Time: 19:06 sb4 12/08 18:03 Order name: Magnesium; Complete Time: 19:06 sb4 12/08 18:03 Order name: Protime (+inr); Complete Time: 18:50 sb4 12/08 18:03 Order name: Ptt, Activated; Complete Time: 18:50 sb4 12/08 18:03 Order name: Troponin High Sensitivity; Complete Time: 19:06 sb4 12/08 18:03 Order name: Urinalysis w/ reflexes; Complete Time: 18:46 sb4 12/08 18:04 Order name: SARS RAPID; Complete Time: 18:55 sb4 12/08 18:04 Order name: Flu; Complete Time: 19:14 sb4 12/08 18:48 Order name: Urine Culture EDMS 12/08 18:50 Order name: Iron Level; Complete Time: 19:30 sb4 12/08 18:03 Order name: CT Head Brain wo Cont; Complete Time: 19:35 sb4 12/08 18:03 Order name: Chest Single View XRAY; Complete Time: 19:37 sb4 12/08 18:03 Order name: EKG; Complete Time: 18:03 sb4 12/08 18:03 Order name: Cardiac monitoring; Complete Time: 19:06 sb4 12/08 18:03 Order name: EKG - Nurse/Tech; Complete Time: 19:06 sb4 12/08 18:03 Order name: IV Saline Lock; Complete Time: 18:32 sb4 12/08 18:03 Order name: Labs collected and sent; Complete Time: 18:32 sb4 12/08 18:03 Order name: NPO; Complete Time: 19:07 sb4 12/08 18:03 Order name: O2 Per Protocol; Complete Time: 18:49 sb4 12/08 18:03 Order name: O2 Sat Monitoring; Complete Time: 18:49 sb4 12/08 18:03 Order name: Orthostatics; Complete Time: 18:49 sb4 EC:06 Rate is 80 beats/min. Rhythm is regular, Normal Sinus Rhythm. MT interval is normal at sb4 172 msec. QRS interval is normal at 94 msec. QT interval is normal at 388 msec. No Q waves. T waves are Normal. No ST changes noted. Clinical impression: Normal ECG and No evidence of ischemia. Interpreted by me. Reviewed by me. Administered Medications: 19:06 CANCELLED (Physician Discretion): [id number] mg PO once sb4 19:31 Drug: NS 0.9% IV 1000 ml IV at 1 bolus Per protocol; 1000 mL bolus Route: IV; Rate: 1 cm10 bolus; Site: left hand; 19:31 Drug: metoCLOPramide IVP 10 mg IVP once; over 1 to 2 minutes Route: IVP; Site: left cm10 hand; 20:15 Follow up: Response: No adverse reaction kj2 19:31 Drug: diphenhydrAMINE IVP 25 mg IVP once Route: IVP; Site: left hand; cm10 20:15 Follow up: Response: No adverse reaction kj2 21:38 Drug: Rocephin IV 1 grams IV at calculated rate once; Given slow IV push per pharmacy kj2 instructions Route: IV; Rate: calculated rate; Site: left hand; Disposition Summary: 12/09/23 22:18 Discharge Ordered Notes: Location: Home sb4 Problem: an ongoing problem sb4 Symptoms: have improved sb4 Condition: Stable sb4 Diagnosis - Dizziness and giddiness sb4 - UTI/ Urinary tract infection, site not specified sb4 - Dehydration sb4 Followup: sb4 - With: Private Physician - When: As needed - Reason: Recheck today's complaints, Re-evaluation by your physician Discharge Instructions: - Discharge Summary Sheet sb4 - Anemia sb4 - Dehydration, Adult sb4 - Urinary Tract Infection, Adult, [id number] sb4 - Dizziness, [id number] sb4 Forms: - Antibiotic Education sb4 - Patient Portal Instructions sb4 - Leadership Thank You Letter sb4 Prescriptions: - Macrobid 100 mg Oral Capsule - take 1 capsule ORAL route every 12 hours for 7 days; 14 capsule; Refills: 0, sb4 Product Selection Permitted Addendum: 12/17/2023 15:37 Co-signature as Attending Physician, Elliott Galan MD I agree with the assessment and c alvarez plan of care. Signatures: Dispatcher [employer] EDElliott Rutledge MD MD cha Sims, Lauren, RN RN ld1 Alisia Negrete PA-C [id number] sb4 Latosha Phelps, RN RN cm10 Miguelina Higgins, RN RN kj2 Corrections: (The following items were deleted from the chart) 12/08 18:04 18:03 BASIC METABOLIC PANEL+C.LAB.BRZ ordered. EDMS EDMS 18:04 18:03 CBC+H.LAB.BRZ ordered. EDMS EDMS 18:04 18:03 HEPATIC FUNCTION+C.LAB.BRZ ordered. EDMS EDMS 18:04 18:03 MAGNESIUM+C.LAB.BRZ ordered. EDMS EDMS 18:04 18:03 PROTIME (+INR)+COAG.LAB.BRZ ordered. EDMS EDMS 18:04 18:03 PTT, ACTIVATED+COAG.LAB.BRZ ordered. EDMS EDMS 18:04 18:03 Troponin High Sensitivity+C.LAB.BRZ ordered. EDMS EDMS 18:04 18:03 Urinalysis+U.LAB.BRZ ordered. EDMS EDMS 19:06 18:55 Acetaminophen PO 650 mg PO once ordered. sb4 sb4
[2023-12-09 23:29] VITALS: TEMP 97.5
[2023-12-09 23:36] VITALS: BP 112/68; O2SAT 100
--- NOTE | 2023-12-12 17:07 | EKG ---
Test Date: 2023-12-09 Test Time: 19:03:17 Music Orchestrator: RAY MEASUREMENT RESULTS: Intervals: Rate: 80 WV: 172 QRSD: 94 QT: 388 QTc: 447 [place]: P: 53 WV: 172 QRS: -13 T: 40 INTERPRETIVE STATEMENTS: Normal sinus rhythm Normal ECG Compared to ECG 04/26/2019 09:57:47 Prolonged QT interval no longer present Electronically Signed On 12-12-23 17:00:41 CDT by Costa Moore
== END 2023-12-09 22:52 | disposition home or self-care (01) ==
LOC: ER 17:13
DX: N39.0 Urinary tract infection, site not specified (principal); E86.0 Dehydration; I10 Essential (primary) hypertension; F41.9 Anxiety disorder, unspecified; Z11.52 Encounter for screening for COVID-19
CPT/HCPCS: 93005; 87088; 85025; 81001; 87086; 80048; 36415; 83735; 85610; 80076; 85730; 84484; 82728; 87804 ×2; 70450; 71045; 96375; 96374; 99285; 87811; J2765; J1200; J7030; J0696